=== PATIENT | female | born 1955 | race Caucasian/White ===

== ENCOUNTER 2019-08-31 12:51 | Outpatient (RCR) | payer MEDICARE, MEDICAID, SELFPAY ==
--- NOTE | 2019-08-31 14:57 | PTOPEVAL ---
Thank you for referring Sherrie Giang to [facility]. Please review, sign, date and return this plan of care JAMIE. I agree with and certify that the following plan of care is medically necessary. Referring Physician Date Admitting Provider: Attending Provider: Rahul Small, MD Referring Provider: *PT Outpatient Evaluation Start: 08/31/19 13:48 Freq: Status: Active Protocol: Document 08/31/19 13:58 KAYLEEN (Rec: 08/31/19 14:29 KAYLEEN [id number]) Therapy Assessment Status Assessment Status Assessment Status Evaluation Evaluation Information Problem Diagnosis falls Onset 07/13/19 Subjective Information Pt. reports that she fell at Query Text:As Reported By Patient/ the end of June. she reports Family she fell at the end of June. She reports that she had gotten dizzy and fell on her kitchen floor. She reports she was in [facility]. She states that she did recieve HH therapy. She states that she currently has pain in her hands and her hips . She reports that she is currently using a cane and has not fallen since the last one in June. She reports that her goal is to be able to go outside and feed her birds and walk without a cane. Prior Level of Function Activity Level (Last 3 Months) Occupation retired Hand Dominance Right Activity of Daily Living Ability Needs Some Help Indoor/Home Mobility Independent Community Mobility Needs Some Help Stairs Ability Independent Functional Cognition (Planning, Shopping Needs Some Help , Taking Medications) Cooking Yes Cleaning No Laundry Yes Shopping No Driving No Home Setting Home Type House Environmental Barriers Stairs, Greater than 4 Living Situation With Spouse Support Available Local Family Support Mobility Assistive Devices (Used Last 3 Cane Months) Pain Assessment Pain Scale Pain Scale Used Numeric (1 - 10) Self Report Pain Assessment Bilateral Leg(s) Reported Pain Level 5 Lowest Pain Intensity 5 Pain Score Pain Score
--- NOTE | 2019-09-01 09:03 | OTOPEVAL ---
Thank you for referring Sherrie Giang to [facility]. Please review, sign, date and return this plan of care JAMIE. I agree with and certify that the following plan of care is medically necessary. Referring Physician Date Admitting Provider: Attending Provider: Rahul Small, MD Referring Provider: *OT Outpatient Evaluation Start: 08/31/19 13:04 Freq: Status: Active Protocol: Document 08/31/19 13:04 [facility] (Rec: 08/31/19 14:08 [facility] [id number]) Therapy Assessment Status Assessment Status Assessment Status Evaluation Outpatient Past Medical History Neurological History Hx Cerebrovascular Accident (CVA) Yes Cardiovascular History Hx Congestive Heart Failure Yes Hx Hypertension Yes Hx Myocardial Infarction Yes Genitourinary History Hx Renal Disease Yes Musculoskeletal History Hx Arthritis Yes: thumbs Evaluation Information Problem Diagnosis decreased ROM and decreased strength Onset 07/13/19 Cause falls, fracture of proximal phalanx of R little finger Subjective Information Patient reports that she had 8 Query Text:As Reported By Patient/ falls within 9 days. Patient Family reports stage 3 kidney failure and that her potassium was very low and she was out of it. Patient reports that she fractured her R 5th finger from a fall. Patient reports that they set her finger into place and she was in a cast for 6 weeks however re-broke it during this time. While in the cast, she fell and busted a rib. Patient reports that she spent a week in [place] and has been home for 4-5 weeks. Patient reports that she had back surgery ~5 years ago and since then she has not been able to walk far distances or stand > 15-20 min. Patient reports she is not able to cut her food/use a knife, step up on a curb/step, do dishes, hold utensils and make a fist. Patient also reports some numbness or thingling in the L
--- NOTE | 2019-09-23 10:34 | PCOTNOTE ---
OT Update on Sherrie Giang as of 09/23/19 Subjective: Patient arrives to OT with no new concern. She reports that she is using her R hand for various activities. She continues to have a difficult time straightening it but is able to grasp more efficiently. Overall, patient has been more active and has been driving and walking more without an AD. Objective: 09/23/19 08/31/19 R 5th Finger Measurements: MCP Active Flexion: 65 degrees 35 degrees PIP Active Flexion: 90 degrees 80 degrees DIP Active Flexion: 45 degrees 40 degrees MCP Active Extension: 0 degrees PIP Active Extension: -40 degrees -60 degrees DIP Active Extension: -10 degrees -30 degrees PIP Passive Extension: -5 degrees DIP Passive Extension: 0 degrees R director of physical security strength: 35# 6# Assessment: Yessy has been seen for 9 OT sessions since 08/31/19 with goals of improving overall B UE strength, specifically director of physical security and pinch strength, and R 5th finger ROM/strength. Pain in the R 5th finger continues to be moderate, reporting 10/25 this date. Patient has been issued and reports independence with home programming consisting of: tendon glides, passive ROM for the R 5th finger as well as various AROM and strengthening exercises. Patient demonstrates significant improvement in R director of physical security and pinch strength since initial evaluation as well as increased active and passive PIP extension; although continues to be limited with active extension. A Oval-8 finger splint was issued to patient to utilize 2-3 hours a day to assist with extension. At this time patient has 3 remaining OT sessions. Thanks, Michelle Dueñas, OTR/Charu
== END 2019-10-13 11:35 | disposition home or self-care (01) ==
LOC: CHSOT 12:51
PROVIDERS: Visit Provider Orthopaedic Surgery
DX: S62.646D Nondisplaced fracture of proximal phalanx of right little finger, subsequent encounter for fracture with routine healing (principal); W19.XXXD Unspecified fall, subsequent encounter
CPT/HCPCS: 97035; 97110; 97112; 97140; 97161; 97165; 97530

== ENCOUNTER 2019-09-14 14:05 | Emergency (ER) | payer MEDICARE, MEDICAID, SELFPAY ==
--- NOTE | ~2019-09-14 | XR_ITS ---
EXAMINATION: XR chest 1V portable EXAM DATE: 09/14/2019 15:52 INDICATION: Intermittent left-sided chest pain. TECHNIQUE: Portable AP frontal chest x-ray was obtained. Comparison is made to prior examination from 09/16/2011. FINDINGS: The lungs are clear. There are no pleural effusions. The cardiomediastinal silhouette is within normal limits. There is no pneumothorax suspected. Old left 7th rib fracture posterolaterall y. IMPRESSION: No acute cardiopulmonary findings. Reviewed, dictated and finalized at location B.
[2019-09-14 14:05] VITALS: BP 142/100; PULSE 61; RESP 18; TEMP 36.4; O2SAT 100
[2019-09-14 14:15] VITALS: O2SAT 100
--- NOTE | 2019-09-14 14:17 | ECG_ITS ---
Measurements Intervals [place] Rate: 62 P: 58 CA: 148 QRS: 27 QRSD: 82 T: 70 QT: 393 QTc: 401 Interpretive Statements SINUS RHYTHM POSSIBLE LEFT ATRIAL ENLARGEMENT LOW QRS VOLTAGE IN PRECORDIAL LEADS BASELINE WANDER- I, III, AVL, AVF, V1-V6 BORDERLINE ECG Electronically Signed On 09-14-2019 14:20:02 CDT by Yogesh Stiles D.O.
[2019-09-14 15:09] VITALS: BP 160/60; PULSE 60; RESP 14
[2019-09-14 15:56] LABS: Basophils Absolute Auto 0.04 K/mm3 (0.00-0.10); Basophils Percent Auto 0.5 % (0.0-1.0); Eosinophils Absolute Auto 0.18 K/mm3 (0.02-0.50); Eosinophils Percent Auto 2.2 % (1.0-6.0); Hematocrit 42.3 % (35.0-42.0); Hemoglobin 14.2 g/dL (11.7-13.8); Immature Granulocyte Absolute 0.03 K/mm3 (0.00-0.00); Immature Granulocyte Percent A 0.4 % (0.0-0.0); Lymphocytes Absolute Auto 1.62 K/mm3 (1.10-4.50); Lymphocytes Percent Auto 19.8 % (18.0-42.0); Mean Corpuscular HGB Conc 33.6 g/dL (32.0-36.0); Mean Corpuscular Hemoglobin 33.9 pg (27.0-31.0); Mean Platelet Volume 10.8 fl (9.2-11.8); Monocytes Absolute Auto 0.83 K/mm3 (0.10-0.90); Monocytes Percent Auto 10.1 % (2.0-11.0); Neutrophils Absolute Auto 5.5 K/mm3 (1.7-7.2); Platelet Count Result 235 K/mm3 (150-420); Red Blood Count 4.19 M/mm3 (4.20-5.40); White Blood Count 8.2 K/mm3 (4.8-10.8)
[2019-09-14 16:14] LABS: Alanine Aminotransferase 16 U/L (14-59); Albumin Level 3.2 g/dL (3.4-5.0); Alkaline Phosphatase 91 U/L (46-116); Anion Gap 11.5 mmol/L (7-16); Aspartate Amino Transferase 14 U/L (15-37); Bilirubin,Total 0.3 mg/dL (0.00-1.00); Blood Urea Nitrogen 16 mg/dL (7-18); Carbon Dioxide 26 mmol/L (21-32); Chloride 105 mmol/L (98-108); Estimated CRCL calculation 28 ml/min; Estimated Glomerular Filt Rate 34; Glucose 90 mg/dL (70-99); Lipase 82 U/L (73-393); Osmolality Calculated 287 mOsm/kg (285-295); Potassium 4.5 mmol/L (3.5-5.1); Sodium 138 mmol/L (136-145); Total Protein 6.7 g/dL (6.4-8.2)
[2019-09-14] MEDS: ALBUTEROL SULFATE (*SP) INHALER 4 PUFF INHALATION (16:15)
[2019-09-14 16:22] LABS: D Dimer 0.52 mg/L (0.19-0.50)
[2019-09-14 16:23] LABS: Troponin I < 0.02 ng/mL (0.00-0.056)
[2019-09-14 16:24] LABS: BNP 166 pg/mL (0-100)
[2019-09-14 16:30] VITALS: BP 142/68; PULSE 61; RESP 14
[2019-09-14 16:55] LABS: Add Urine Microscopic? NO; Appearance Urine Clear (Clear); Bilirubin Urine Negative (Negative); Blood Urine Negative (Negative); Color Urine Yellow (Yellow); Glucose Urine UA Negative (Negative); Ketones Urine Negative (Negative); Leukocyte Esterase Ur Negative LEU/UL (Negative); Nitrate Urine Negative (Negative); Protein Urine Negative (Negative); Specific Grav Ur <= 1.005 (1.010-1.020); Urobilinogen Urine 0.2 mg/dL (0.2-1.0); pH Urine 6.5 (5.0-8.0)
--- NOTE | 2019-09-14 18:20 | PC.NURSE ---
Addendum entered by Marylou Marcus RN 09/14/19 18:26: PT. LEFT AMA AT 1745 AND VITALS WERE STABLE AT THAT TIME. PT. AMBULATED OUT OF THE DOOR WITH HER AND HER CANE. Original Note: PT. DECIDED TO LEAVE AMA AND VERBALIZED THAT SHE WAS WAITING TOO LONG TO BE DISCHARGED. WE WERE WAITING FOR HER URINALYSIS RESULTS AND MD WAS WITH A CRITICAL PATIENT AT THAT TIME. GLENYS ALLEN EDUCATED PATIENT THAT SHE WAS AT RISK BY LEAVING BEFORE DISCHARGE INSTRUCTIONS AND ALL RESULTS WERE ASSESSED BY THE MD. SHE WAS INFORMED THAT IT IS HER RIGHT TO REFUSE TREATMENT BUT IF SHE WOULD BE ABLE TO WAIT FOR DISCHARGE IT WOULD BE BENEFICIAL TO HER HEALTH AND DECREASE RISK OF STROKE OR HEART ATTACK. SHE WAS ALSO INSTRUCTED TO FOLLOW UP WITH HER PCP AND MAKE SURE TO GET IN TOUCH WITH EMAIL MANAGER WELL.
--- NOTE | 2019-09-15 01:03 | ED.CHESTPAIN ---
HPI - Chest Pain General Chief Complaint: Chest Pain Stated Complaint: chest pain Source: patient Mode of arrival: ambulatory Limitations: no limitations History of Present Illness HPI narrative: as patient states that she has been having chest pains recently. Ms. Padmaja mike is a 64-year-old female who presents to the ED with complaints of intermittent chest pains. These have really been going on for several months to years but they only occur randomly. yesterday she had several events were trying to drive somewhere. today she was doing well until she started doing the hand bike at physical therapy. then she had several more events that included chest pain. She says she does have some shortness of breath but no nausea no vomiting she does not have abdominal pain she does not have radiation of the pain anywhere else. Patient describes these events as being very sharp very intense but very brief in duration she had several episodes while I was in the room with her this pain seems to grab her last for maybe 5-10 seconds and then dissipated almost just a quick. These events have been occurring for years his chest to that today and yesterday seemed to happen more frequently according to the patient. MD complaint: chest pain Timing of current episode: episodic Prior episodes: Yes Onset: during rest, during exertion and after eating Pain location: substernal Quality: tightness, sharp and shooting Relieving factors: nothing Exacerbating factors: nothing Treatment prior to arrival: none Related Data Home Medications Medication Instructions Recorded Confirmed acetaminophen-codeine 1 tablet PO Q6-12H 09/14/19 09/14/19 albuterol sulfate 1 - 2 puff INHALATION Q4-6H PRN 09/14/19 09/14/19 bupropion HCl 300 mg PO DAILY 09/14/19 09/14/19 carvedilol 12.5 mg PO BID 09/14/19 09/14/19 cetirizine 10 mg PO 09/14/19 conjugated estrogens [Premarin] 0.3 mg PO DAILY 09/14/19 09/14/19 furosemide 40 mg PO DAILY 09/14/19 09/14/19 gabapentin 100 mg PO DAILY 09/14/19 09/14/19 hydrochlorothiazide 25 mg PO DAILY 09/14/19 09/14/19 hydrocodone-acetaminophen 1 tablet PO Q4-6H PRN 09/14/19 09/14/19 hydroxyzine HCl 50 mg PO BID 09/14/19 09/14/19 magnesium oxide 400 mg PO DAILY 09/14/19 09/14/19 meloxicam 15 mg PO DAILY 09/14/19 09/14/19 methocarbamol 500 mg PO DAILY 09/14/19 09/14/19 methocarbamol 750 mg PO DAILY 09/14/19 09/14/19 phentermine 15 mg PO DAILY 09/14/19 09/14/19 potassium chloride [Klor-Con M10] 10 meq PO DAILY 09/14/19 09/14/19 pramipexole 1 mg PO DAILY 09/14/19 09/14/19 spironolactone 50 mg PO DAILY 09/14/19 09/14/19 tizanidine 2 mg PO 09/14/19 zonisamide 50 mg PO DAILY 09/14/19 09/14/19 Allergies Allergy/AdvReac Type Severity Reaction Status Date / Time aspirin Allergy Dyspnea / Verified 09/14/19 15:24 SOB Sulfa (Sulfonamide Allergy Hives Verified 09/14/19 15:24 Antibiotics) sumatriptan Allergy Hives Verified 09/14/19 15:24 SUMATRIPTAN SUCCINATE Allergy Hives Uncoded 09/14/19 15:24 Review of Systems Review of Systems: All systems reviewed & are unremarkable except as noted in HPI and below Constitutional: Constitutional: Denies chills, Reports fatigue, Denies fever(s) and Denies weakness Eyes: Eyes: Denies as per HPI, Denies no additional eye complaints, Denies change in vision and Denies photophobia ENT: Denies system reviewed and no additional complaints, except as documented, Denies as per HPI, Denies dysphagia, Denies vertigo, Denies dizziness, Denies epistaxis, Denies nasal congestion and Denies sore throat Cardiovascular: Cardiovascular: Reports no additional cardiovascular complaints and Reports chest pain Respiratory: Respiratory: Denies as per HPI, Denies no additional respiratory complaints, Denies chest congestion, Denies cough, Denies dyspnea and Denies wheezing Gastrointestinal: Gastrointestinal: Denies as per HPI, Denies no additional gastrointestinal complaints, Denies abdominal pain, Denies bloating, Denies const
== END 2019-09-14 17:45 | disposition left against medical advice (07) ==
LOC: CHSED 14:07
PROVIDERS: Emergency Provider Emergency Medicine
DX: R07.89 Other chest pain (principal); I10 Essential (primary) hypertension; F17.200 Nicotine dependence, unspecified, uncomplicated
CPT/HCPCS: 36415; 71045; 80053; 81003; 83690; 83880; 84484; 85025; 85380; 93005; 99283; 99284; A9270

== ENCOUNTER 2020-02-24 13:04 | Outpatient (RCR) | payer MEDICARE, MEDICAID, SELFPAY ==
--- NOTE | 2020-02-24 13:58 | PTOPEVAL ---
Thank you for referring Sherrie Giang to [facility] The patient is scheduled to be seen for therapy? ____x/week for ___ weeks. Please review, sign, date and return this plan of care JAMIE. I agree with and certify that the following plan of care is medically necessary. Referring Physician Date Admitting Provider: Attending Provider: Nik Small MD Referring Provider: *PT Outpatient Evaluation Start: 02/24/20 13:06 Freq: Status: Active Protocol: Document 02/24/20 13:06 [facility] (Rec: 02/24/20 13:57 [facility] [id number]) Therapy Assessment Status Assessment Status Assessment Status Evaluation Outpatient Past Medical History Neurological History Hx Cerebrovascular Accident (CVA) Yes Cardiovascular History Hx Chest Pain Yes Hx Congestive Heart Failure Yes Hx Hypertension Yes Hx Myocardial Infarction Yes Hx Vascular Surgery Yes: FEMORAL CATH TO STENT RENAL ARTERY Respiratory History Hx Chronic Obstructive Pulmonary Disease Yes (COPD) Hx Pneumonia Yes Gastrointestinal History Hx Appendectomy Yes Hx Bowel Surgery Yes Hx Cholecystectomy Yes Hx Gall Bladder Disease Yes Genitourinary History Hx Renal Disease Yes: STAGE 3 CKD Musculoskeletal History Hx Arthritis Yes: thumbs Hx Other Musculoskeletal Disorders Yes: HAS TO WALK WITH A CANE Hematological History Hx Hematological Disorders No Significant History Endocrine History Hx Endocrine Disorders No Significant History HEENT History Hx HEENT Disorders No Significant History Integumentary History Hx Skin Disorders No Significant History Reproductive History Hx Hysterectomy Yes Psychosocial History Hx Depression Yes Hx Other Psychiatric Disorders Yes: PT. HAD MILD EXPERIENCE OF HALLUCINATIONS IN THE PAST Pain History Has Past Pain Affected Your Daily Life Yes History of Long-Term Prescription Pain Yes Medication Use (Opiates) Effective Methods of Pain Control MEDICATION THAT IS NOT OVER THE COUNTER Anesthesia History Hx Anesthesia Reactions No Significant History Other History Hx MRSA Yes: HX OF MRSA INFECTIONS OF ABDOMEN WITH DEBRIDEMENTS Hx Other Surgeries Yes: SHUNTS TO LIVER, TUBAL LIGATION Evaluation Information Problem Diagnosis L hip bursitis Additional Evaluation Detail LEFS = 58% functionally declined Subjective Information patient reports she has been Query Text:As Reported By Patient/
--- NOTE | 2020-04-06 14:01 | PCPTNOTE ---
04/06/20-pt cancelled apt today, stating she is wearing a heart monitor, and does not wish to come to therapy with it. -HM
--- NOTE | 2020-06-20 07:35 | PCPTNOTE ---
06/20/20 - patient has not been to therapy in over 2 months. as of this date, she will be dc'd from skilled PT services and all progress towards goals will be taken from her most recent evaluation/note. TWILA
== END 2020-03-30 23:59 | disposition home or self-care (01) ==
LOC: CHSPT 13:04
PROVIDERS: Visit Provider Internal Medicine Infectious Disease
DX: M71.552 Other bursitis, not elsewhere classified, left hip (principal)
CPT/HCPCS: 97014; 97110; 97140; 97162; G0283

== ENCOUNTER 2020-12-16 10:26 | Outpatient (CLI) | payer OTHER, SELFPAY ==
[2020-12-16 10:48] LABS: Basophils Absolute Auto 0.06 K/mm3 (0.00-0.10); Basophils Percent Auto 0.7 % (0.0-1.0); Eosinophils Absolute Auto 0.14 K/mm3 (0.02-0.50); Eosinophils Percent Auto 1.7 % (1.0-6.0); Hematocrit 43.7 % (35.0-42.0); Immature Granulocyte Absolute 0.04 K/mm3 (0.00-0.00); Immature Granulocyte Percent A 0.5 % (0.0-0.0); Lymphocytes Absolute Auto 2.19 K/mm3 (1.10-4.50); Lymphocytes Percent Auto 26.5 % (18.0-42.0); Mean Corpuscular Hemoglobin 31.9 pg (27.0-31.0); Mean Corpuscular Volume 99.5 fL (78.0-102.0); Mean Platelet Volume 10.5 fl (9.2-11.8); Monocytes Absolute Auto 0.73 K/mm3 (0.10-0.90); Monocytes Percent Auto 8.8 % (2.0-11.0); Neutrophils Absolute Auto 5.1 K/mm3 (1.7-7.2); Neutrophils Percent Auto 61.8 % (50.0-70.0); Platelet Count Result 236 K/mm3 (150-420); Red Blood Count 4.39 M/mm3 (4.20-5.40); White Blood Count 8.3 K/mm3 (4.8-10.8)
[2020-12-16 10:55] LABS: Creatinine Urine 43.08 mg/dL (40-278); Total Protein Urine Random 14.9 mg/dL (0.0-11.9); Ur Ttl Prot Creatinine Ratio 0.35 mg/mg (0-0.20)
[2020-12-16 11:21] LABS: Albumin Level 3.8 g/dL (3.4-5.0); Anion Gap 10 mmol/L (8-16); Blood Urea Nitrogen 25 mg/dL (7-18); Calcium 9.3 mg/dL (8.5-10.1); Carbon Dioxide 24 mmol/L (21-32); Chloride 104 mmol/L (98-108); Estimated Glomerular Filt Rate 35; Glucose 87 mg/dL (70-99); Osmolality Calculated 289 mOsm/kg (285-295); Phosphorus 4.3 mg/dL (2.6-4.7); Potassium 5.5 mmol/L (3.5-5.1); Sodium 138 mmol/L (136-145)
[2020-12-20 11:25] LABS: Parathyroid Intact 33 pg/mL (14-64)
== END 2020-12-16 10:27 | disposition home or self-care (01) ==
LOC: CHSLAB 10:33
PROVIDERS: Visit Provider Internal Medicine Nephrology
DX: N18.32 Chronic kidney disease, stage 3b (principal)
CPT/HCPCS: 36415; 80069; 82570; 83970; 84156; 85025

== ENCOUNTER 2021-02-18 18:22 | Inpatient (IN) | payer OTHER, SELFPAY ==
--- NOTE | ~2021-02-18 | US_ITS ---
EXAMINATION: US renal BI DATE: 02/19/2021 17:38 INDICATION: Acute kidney injury. TECHNIQUE: Multiple ultrasound grayscale images of the kidneys were obtained. COMPARISON: CT abdomen and pelvis 02/18/2021 FINDINGS: The right kidney measures 4.6 x 3.7 x 2.7 cm. The left kidney measures 9.6 x 5.6 x 5.1 cm. The right kidney demonstrates increased parenchymal echogenicity, consistent with neuropathy. There is no hydro nephrosis. The bladder is normal. IMPRESSION: 1. Severe atrophy of right kidney. No hydronephrosis. Reviewed, dictated and finalized at location A. ST LANDSCAPE ECOLOGY PROFESSOR
--- NOTE | ~2021-02-18 | XR_ITS ---
EXAMINATION: XR chest 2V DATE: 02/18/2021 21:53 INDICATION: Dyspnea and weakness. TECHNIQUE: PA and lateral views of the chest were obtained. COMPARISON: Chest radiograph dated 09/14/2019 FINDINGS: The lungs are clear with no focal airspace opacities, pulmonary edema, pleural effusion or pneumothor ax. The cardiomediastinal silhouette is normal. Old bilateral seventh rib fractures. IMPRESSION: 1. No acute cardiopulmonary disease. Reviewed, dictated and finalized at location A. IMEDIA AUTHORING SPECIALIST
--- NOTE | ~2021-02-18 | CT_ITS ---
EXAMINATION: CT abdomen pelvis wo con DATE: 02/18/2021 22:00 INDICATION: Left lower quadrant abdominal pain TECHNIQUE: Computed tomography (CT) of the abdomen and pelvis was performed without intravenous contr ast. Automated exposure control and iterative reconstruction technique were employed. The dose-length product was 969.39 mGy-cm. COMPARISON: None FINDINGS: Mild irregular septal line thickening at the periphery of the bilateral lower lungs which could repre sent atelectasis, minimal pulmonary edema or more chronic interstitial lung disease. Heart size is no rmal. Dense mitral annular calcific location. No pericardial or pleural effusion. Gallbladder is not visualized and likely surgically absent. Liver, pancreas, spleen, bilateral adrenal glands and left k idney are normal. Severe right renal atrophy with 1-2 mm stone at the upper pole. There is a 2-3 mm s tone in the proximal right ureter both no hydronephrosis likely due to the severe right renal atrophy . No left-sided urolithiasis or hydronephrosis. Layering fluid in the proximal colon consistent with diarrhea. There are few diverticula along the sigmoid colon without adjacent inflammatory stranding t o suggest diverticulitis. Small bowel is normal. The appendix is not visualized. No pericecal inflamm atory change to suggest acute appendicitis. Bladder is normal. The uterus is not identified and has l ikely been surgically resected. No free intraperitoneal gas or fluid. No pathologically enlarged abdo joanne or pelvic lymphadenopathy. Postoperative changes in the lower lumbar spine including L5 laminec juan, L4-S1 posterior spinal fusion and anterior fusion with ny extending from L4 to S1 across the L 5 vertebral body. IMPRESSION: 1. Right nephrolithiasis including 2-3 mm stone in the proximal right ureter but no right hydronephro sis likely due to severe atrophy of the right kidney. 2. Mild sigmoid diverticulosis. 3. Mild reticulation along the periphery of the lower lungs with differential including atelectasis, mild pulmonary edema or more chronic interstitial lung disease. Reviewed, dictated and finalized at location A. PROJECT MANAGER IMPRESSION: 1. Right nephrolithiasis including 2-3 mm stone in the proximal right ureter bu t no right hydronephrosis likely due to severe atrophy of the right kidney. 2. Mild sigmoid diverticulosis. 3. Mild reticulation along the periphery of the lower lungs with differential i ncluding atelectasis, mild pulmonary edema or more chronic interstitial lung di sease.
[2021-02-18 18:27] VITALS: BP 140/68; PULSE 71; RESP 18; TEMP 36.3; O2SAT 99
--- NOTE | 2021-02-18 21:04 | ECG_ITS ---
Measurements Intervals [place] Rate: 65 P: 32 NC: 173 QRS: -20 QRSD: 106 T: 59 QT: 457 QTc: 475 Interpretive Statements SINUS RHYTHM NORMAL ECG Electronically Signed On 02-19-2021 7:03:26 WOOD MACHINE CARVER by Yogesh Stiles D.O.
--- NOTE | 2021-02-18 21:08 | ED.WEAKNESS ---
HPI - Weakness General Chief complaint: Weakness Stated complaint: kidney Time Seen by Provider: 02/18/21 20:53 Source: patient History of Present Illness HPI Narrative: Patient reports generalized weakness over the past 2 weeks getting progressively worse today she had a syncopal event. She got up from trying to use the restroom when she felt lightheaded dizzy and collapsed. Struck her head she denies loss of consciousness she denies any headache. For she is also had nausea and decreased p.o. intake over this time. Also reports she has not urinated over the past few days which is atypical for her. Denies fevers, cough she does report mild increase from her baseline shortness of breath Related Data Home Medications Medication Instructions Recorded Confirmed albuterol mcg INHALATION 02/18/21 bumetanide 1 mg PO DAILY 02/18/21 carvedilol 12.5 mg PO BID 02/18/21 cetirizine [All Day Allergy 10 mg PO DAILY 02/18/21 (cetirizine)] conjugated estrogens [Premarin] 0.3 mg PO DAILY 02/18/21 doxepin mg 02/18/21 isosorbide mononitrate 30 mg PO DAILY 02/18/21 omeprazole 40 mg PO DAILY 02/18/21 pramipexole 1.5 mg PO HS 02/18/21 spironolactone 50 mg PO DAILY 02/18/21 tizanidine 4 mg PO HS PRN 02/18/21 zonisamide 100 mg PO BID 02/18/21 Allergies Allergy/AdvReac Type Severity Reaction Status Date / Time aspirin Allergy Ulcers Verified 02/18/21 18:29 Review of Systems Review of Systems: CONSTITUTIONAL: Denies fever, chills, or sweats. EYES: Denies visual changes, redness, or discharge. ENT: Denies rhinorrhea, congestion, sore throat, or otalgia. CARDIOVASCULAR: Denies chest pain, palpitations, or edema. RESPIRATORY: Denies cough GASTROINTESTINAL: Denies abdominal pain, nausea, vomiting, or diarrhea. GENITOURINARY: Denies dysuria or hematuria. SKIN: Denies rash or itching. MUSCULOSKELETAL: Denies back pain, joint pain, or myalgia. NEUROLOGIC: Denies headache, numbness, dizziness, or focal weakness. PSYCHIATRIC: Denies anxiety or depression. All systems reviewed & are unremarkable except as noted in HPI and below PMFSH Past Medical History Medical History (Updated 02/19/21 @ 00:48 by Freeman Caballero MD) Chronic kidney disease Heart failure Social History Social History (Updated 02/18/21 @ 21:09 by Freeman Caballero MD) Smoking status: Current every day smoker Exam Narrative: GENERAL: Well-appearing, well-nourished, and in no acute distress. HEAD: Normocephalic, atraumatic. EYES: PERRLA and EOMI. ENT: Nares clear, no rhinorrhea or epistaxis. Mucous membranes moist. NECK: Supple. No masses. No JVD CHEST: Clear to auscultation. No respiratory distress. No wheezes rales or rhonchi HEART: Regular rate and rhythm. No murmur heard. Normal peripheral pulses. ABDOMEN: Moderate diffuse tenderness most noted in the left lower quadrant, nondistended, normal active bowel sounds. EXTREMITIES: Normal range of motion. No edema. SKIN: Warm, dry, no rash. NEURO: No focal deficits. Alert and oriented x3. PSYCH: Normal mood and affect. Course Reevaluation(s) Reevaluation #1: Patient presents with weakness case With hospitalist patient will be admitted for her electrolyte abnormalities and reassessment. Date: 02/19/21 Time: 00:06 Vital Signs Vital signs: Vital Signs Temperature 36.3 C L 02/18/21 18:27 Pulse Rate 71 02/18/21 18:27 Respiratory Rate 18 02/18/21 18:27 Blood Pressure 140/68 02/18/21 18:27 Pulse Oximetry 99 02/18/21 18:27 Temperature 36.3 C L 02/18/21 18:27 Pulse Rate 55 L 02/19/21 04:17 Respiratory Rate 17 02/19/21 04:17 Blood Pressure 103/58 L 02/19/21 04:17 Pulse Oximetry 97 02/19/21 04:17 MDM - Weakness MDM Narrative Medical decision making narrative: Patient with progressive weakness over the past 2 weeks. Overall patient looks clinically well exam had nonfocal neurological exam on exam had left lower quadrant abdominal pain. Labs and imaging obtained. Tammy
[2021-02-18 21:26] LABS: Basophils Absolute Auto 0.1 K/mm3 (0.0-0.1); Basophils Percent Auto 0.5 % (0.2-1.2); Eosinophils Absolute Auto 0.1 K/mm3 (0-0.3); Eosinophils Percent Auto 1.3 % (0-4.4); Hematocrit 44.5 % (37.0-47.0); Immature Granulocyte Absolute 0.06 K/mm3 (0.00-0.031); Immature Granulocyte Percent A 0.5 % (0-0.5); Lymphocytes Absolute Auto 2.82 K/mm3 (0.9-3.2); Lymphocytes Percent Auto 25.5 % (18.3-44.2); Mean Corpuscular Hemoglobin 32.4 pg (26-34); Mean Corpuscular Volume 90.1 fl (80-100); Mean Platelet Volume 10.9 fl (7.4-10.4); Monocytes Absolute Auto 1.4 K/mm3 (0.1-0.6); Neutrophils Absolute Auto 6.5 K/mm3 (1.3-6.7); Neutrophils Percent Auto 59.2 % (45.5-73.1); Platelet Count Result 280 k/mm3 (150-375); Red Blood Count 4.94 M/mm3 (4.2-5.4)
[2021-02-18 22:29] LABS: Add Urine Microscopic? YES; Appearance Urine Cloudy (Clear); Bacteria Urine 1+ /hpf; Bilirubin Urine Negative (Negative); Blood Urine Negative (Negative); Color Urine Amber (Yellow); Glucose Urine UA Negative (Negative); Ketones Urine Trace mg/dL (Negative); Leukocyte Esterase Ur Negative LEU/UL (Negative); Mucus Urine Rare /lpf; Nitrate Urine Negative (Negative); Protein Urine Negative (Negative); RBC Urine 0-2 /hpf (0-2); Specific Grav Ur 1.013 (1.001-1.035); Squamous Epithelial Cell Urine Many /hpf (Few); Urobilinogen Urine Negative mg/dL (<2.0); WBC Urine 0-3 /hpf
[2021-02-18 22:59] LABS: Alanine Aminotransferase 24 U/L (4-35); Albumin Level 4.9 g/dL (3.5-5.1); Alkaline Phosphatase 73 U/L (38-126); Anion Gap 15 mmol/L (8-16); Aspartate Amino Transferase 35 U/L (14-36); Bilirubin,Total 0.6 mg/dL (0.2-1.3); Blood Urea Nitrogen 66 mg/dL (7-17); Calcium 10.1 mg/dL (8.4-10.2); Carbon Dioxide 30 mmol/L (22-30); Chloride 82 mmol/L (98-107); Estimated CRCL calculation 18 ml/min; Estimated Glomerular Filt Rate 16; Glucose 119 mg/dL (65-110); Lipase 166 U/L (23-300); Magnesium 2.6 mg/dL (1.6-2.3); Phosphorus 4.7 mg/dL (2.5-4.5); Potassium 2.2 mmol/L (3.4-5.0); Sodium 127 mmol/L (137-145)
[2021-02-18] MEDS: SODIUM CHLORIDE 0.9% IV 1,000 ML 999 ML IV CONT (23:43)
[2021-02-18 23:44] VITALS: BP 144/99; PULSE 58; RESP 18; O2SAT 98
[2021-02-19] VITALS (10 sets, daily range): BP systolic 82–116; BP diastolic 47–78; PULSE 53–70; RESP 16–20; TEMP 36.2–36.7; O2SAT 92–99; BMI 36.4
[2021-02-19] MEDS: KCL 20 MEQ/D5/0.45% SOD CHL 1,000 ML 125 ML IV CONT (00:04)
[2021-02-19] MEDS: ONDANSETRON INJ 4 MG/2 ML VIAL IV PUSH ×2 (00:16→20:59)
[2021-02-19] MEDS: POTASSIUM CHLORIDE 20 MEQ PACKET (FOR LIQUID) 40 MEQ PO ×2 (01:17→10:42)
[2021-02-19] MEDS: SODIUM CHLORIDE 0.9% IV 1,000 ML 999 ML IV CONT (01:19)
--- NOTE | 2021-02-19 05:25 | ADMGEN ---
This patient, Sherrie Giang, was admitted to [facility] Surg Room 317-02. Patient/family oriented to hospital policies and general routines including ID bracelet, bed and alarms, visiting hours, pain management, procedures, bathroom and other care routines, personal items, smoking policy, room service/diet, and visiting hours. Information on how to activate the Rapid Response Team has been discussed. Patient/Family are encouraged to report perceived risks to care and to ask questions if they do not understand what they are told or what they should do.
--- NOTE | 2021-02-19 06:17 | PM.IMHP ---
H&P: HPI History of Present Illness Date/Time: 02/19/21 06:17 Chief Complaint: Weakness, decreased appetite and diarrhea Narrative: 65-year-old female with a past medical history of stage 3 chronic kidney disease, hypertension, CHF and chronic back pain who presented to the ER for evaluation of weakness. She reports that she follows with Dr. Kuldeep Gates regarding her kidney disease and that her GFR is usually around 30. The patient reports that she has been having 2 weeks of progressive weakness that worsened on the day of presentation. She states that for the last 2 weeks he has had decreased appetite and just feels as if he cannot eat. She will eat a few bites of food and be done. She denies sensation of early satiety. She states that she cannot give any more details she just ?can not eat?. She does have occasional nausea. She has not been having any vomiting. She has also had about a week of diarrhea. She reports that her stools have been watery and brown in color. She is having 3-4 loose stools a day. She has denies any recent travel or antibiotic therapy. She has had decreased urine output and has not urinated much over the last few days. But she told the ER staff that she had not urinated all in several days. However, since she has arrived to the medical floor she is already urinated a couple of times. One of those time she did have urine mixed with stool. She reports that she has been having intermittent left periumbilical abdominal pain for the last several days to week. Pain is worse with palpation. However, she does report that she has some issues with perception of pain due to her multiple abdominal surgery for prior MRSA infection of her abdominal wall. She denies any abdominal distension. She reports moderate to severe pain in her lumbar area of her back where she had prior lumbar surgery. She states that she usually takes Tylenol 3 at home for this. However I can find no evidence of prior Tylenol 3 prescriptions in the prescription drug monitoring program. She is able to move all extremities equally. She reports that the back pain is worse because she is laying in the hospital bed. She does have chronic shortness of breath at baseline. She has an occasional dry cough that is unchanged from baseline. She denies having fevers or chills. She has been feeling extremely lightheaded with standing. She decided to come to the ER after she had a fall when trying to get up to use the restroom. She reported that she felt lightheaded and dizzy and collapsed. She stated that she struck her head when she fell. Review of Systems Review of Systems: 12 systems were reviewed with pertinent positives and negatives per HPI. Except as documented in the HPI, all other systems were reviewed and are negative. [facility] Past Medical History Medical History (Updated 02/19/21 @ 08:28 by Ramona Dutta DO) Allergic rhinitis Chronic kidney disease Chronic lower back pain Depression GERD (gastroesophageal reflux disease) Heart failure Restless leg syndrome Surgical History Surgical History (Updated 02/19/21 @ 08:24 by Ramona Dutta DO) History of hysterectomy History of ventral hernia repair X5 complicated by MRSA infection requiring debridement Status post cataract extraction of both eyes with insertion of intraocular lens Family History Family History (Updated 02/19/21 @ 08:25 by Ramona Dutta DO) Mother Lung cancer Father Healthy adult Alive and well at age greater than 90 Social History Social History (Updated 02/19/21 @ 08:25 by Ramona Dutta DO) Smoking packs per day: 0.5 Smoking cigarettes per day: 10.0 Years smoked: 50 Smoking pack-years: 25.00 Smoking status: Light tobacco smoker Alcohol intake: former Substance use: never Spiritual care concerns: No Meds Home Medications and Allergies Home Medications Medication Instructions Recorded Confirmed Type albuterol 90 mc
[2021-02-19 07:30] LABS: Magnesium 2.5 mg/dL (1.6-2.3)
[2021-02-19 09:19] LABS: Anion Gap 14 mmol/L (8-16); Blood Urea Nitrogen 59 mg/dL (7-17); Calcium 8.9 mg/dL (8.4-10.2); Carbon Dioxide 23 mmol/L (22-30); Chloride 96 mmol/L (98-107); Estimated CRCL calculation 26 ml/min; Estimated Glomerular Filt Rate 22; Glucose 107 mg/dL (65-110); Potassium 2.5 mmol/L (3.4-5.0); Sodium 133 mmol/L (137-145)
[2021-02-19] MEDS: TIZANIDINE HCL 4 MG TABLET 8 MG PO ×2 (10:42→20:57)
[2021-02-19] MEDS: PANTOPRAZOLE 40 MG TABLET PO ×2 (10:43→18:06)
[2021-02-19] MEDS: GABAPENTIN 100 MG CAPSULE PO ×2 (10:43→18:07)
[2021-02-19] MEDS: ISOSORBIDE MONONITRATE 30 MG TAB.ER.24H PO (10:43)
[2021-02-19] MEDS: ZONISAMIDE 100 MG CAPSULE PO ×3 (10:43→18:06)
[2021-02-19] MEDS: KCL 20 MEQ/SW 100 ML 100 ML 50 MEQ IVPB (10:43)
[2021-02-19 10:54] LABS: Anion Gap 10 mmol/L (8-16); Blood Urea Nitrogen 54 mg/dL (7-17); Calcium 8.6 mg/dL (8.4-10.2); Carbon Dioxide 23 mmol/L (22-30); Chloride 97 mmol/L (98-107); Estimated CRCL calculation 29 ml/min; Estimated Glomerular Filt Rate 26; Glucose 123 mg/dL (65-110); Potassium 2.7 mmol/L (3.4-5.0); Sodium 130 mmol/L (137-145)
--- NOTE | 2021-02-19 12:06 | PM.CNNEP ---
Assessment and Plan Assessment and plan (1) KHALIF (acute kidney injury): Code(s): N17.9 - Acute kidney failure, unspecified Status: Acute Assessment and Plan: likely due to a combination of volume depletion from poor oral intake worsened by diarrhea and continued use of outpatient diuretic therapy check renal ultrasound check urine electroltyes gentle IVF hydration hold diuretics (2) Stage 3b chronic kidney disease: Code(s): N18.32 - Chronic kidney disease, stage 3b Status: Chronic Assessment and Plan: baseline creatinine ~ 1.5 - 1.6mg/dl in the last year or so secondary to HTN, vascular disease, and smoking (3) Hypokalemia: Code(s): E87.6 - Hypokalemia Status: Acute Assessment and Plan: due poor oral intake and ongoing diuretic use replete as needed follow trend (4) Hyponatremia: Code(s): E87.1 - Hypo-osmolality and hyponatremia Status: Acute Assessment and Plan: suspect hypovolemic hyponatremia should correct with IVFs follow trend for now Will continue to follow. History of Present Illness Reason for Consult Consult date: 02/19/21 Reason for consult: acute renal failure, hyponatremia and hypokalemia Chief Complaint Chief complaint: Hypokalemia History of Present Illness Narrative: IT SHOULD BE NOTED THAT THE PATENT HAS ANOTHER CHART IN [facility] (under the name Sherrie Gaing ). The patient is a 65-year-old female with a past medical history as outlined below who presented to the [facility] ER for complaints of generalized weakness. She states that over the last two weeks she has felt that her weakness has progressively gotten worse and due to this ongoing issue/problem, she thought it prudent to present to the emergency room for further evaluation. In association with a generalized weakness, she reports poor oral intake and decreased appetite in the same time frame but is unable to elaborate on why she is unable to eat. She reports occasional nausea and did report about a week of diarrhea prior to the symptoms. She also reports a decrease in urine output over the last few days but assumed was just due to the fact that she had at but eating and drinking very well. Furthermore, she reports dizziness and lightheadedness and even a fall when trying to go to the restroom as well. Workup and evaluation emergency room demonstrated the patient to be hemodynamically stable but routine blood test demonstrated marked decline in her kidney function with elevated BUN and creatinine far above baseline. Furthermore, she had multiple electrolyte abnormalities including hyponatremia, as well as hypokalemia. She underwent a CT scan of the abdomen pelvis did not show any acute abdominal pathology although there was noting of nephrolithiasis in her right kidney without right hydronephrosis although the right kidney was somewhat atrophic. Her CBC was remarkable for a mildly elevated white blood cell count an elevated hemoglobin/hematocrit. Given her constellation of symptoms on presentation and these laboratory abnormalities, she was admitted the hospital for further evaluation therapy. Renal consultation was requested due to her acute kidney injury on top of her known chronic kidney disease. The patient normally follows with Dr. Kuldeep Gates for her chronic kidney disease which is thought to be secondary to a combination of her hypertension, vascular disease, and smoking history. Her normal baseline creatinine normally runs around 1.5-1.6 mg/dL. I believe she is due to see Dr. Gates in the office in the next few days for ongoing management of her chronic kidney disease. Currently, she feels a bit better and appears to be eating her lunch at the time of my visit. Review of Systems Review of Systems: As per HPI. [facility] Past Medical History Medical History (Updated 02/19/21 @ 17:15 by Kaycee Craven MD) Allerg
--- NOTE | 2021-02-19 12:56 | PM.IMPN ---
Progress Note: A&P Assessment and Plan (1) Acute hypokalemia: Code(s): E87.6 - Hypokalemia Status: Acute Assessment and Plan: Severe hypokalemia likely secondary to GI losses. Supplemented aggressively with p.o. and IV potassium while closely monitoring potassium in the setting of acute kidney injury. Currently patient is making urine which is very reassuring. (2) Hypovolemia: Code(s): E86.1 - Hypovolemia Status: Acute Assessment and Plan: Current likely secondary to GI losses. Continue IV resuscitation. (3) Acute kidney injury superimposed on chronic kidney disease: Code(s): N17.9 - Acute kidney failure, unspecified; N18.9 - Chronic kidney disease, unspecified Status: Acute Assessment and Plan: Acute nonoliguric kidney injury in the setting of previously diagnosed chronic kidney disease. Patient creatinine has improved from 2.2-1.9. (4) Diarrhea: Qualifiers: Diarrhea type: unspecified type Qualified Code(s): R19.7 - Diarrhea, unspecified Code(s): R19.7 - Diarrhea, unspecified Status: Acute (5) Hyponatremia: Code(s): E87.1 - Hypo-osmolality and hyponatremia Status: Acute Assessment and Plan: Likely secondary to appropriate ADH release in the setting of hypovolemia secondary to diarrhea. Check urine electrolytes. Continue IV fluid resuscitation while closely monitoring output, serial chemistries, and respiratory status. (6) Heart failure: Code(s): I50.9 - Heart failure, unspecified Status: Acute Assessment and Plan: Currently her asymptomatic and hypovolemic. Due to GI losses, the patient hydrochlorothiazide, bumetanide, coreg and spironolactone have been appropriately put on hold. Continue cautious IV fluid hydration. Additional Plan Patient is hypokalemia and hypovolemia likely related to diarrheal illness and decreased oral potassium intake in conjunction with continued diuretic use. The patient's hydrochlorothiazide, Bumex and spironolactone are on hold. Will continue IV fluid hydration. The patient's blood pressures this morning or borderline low so will also hold the patient's home Coreg. Will continue IV fluid hydration. Will check stool for C diff, stool cultures and stool wbc's. Other causes of diarrhea could also be possible including possible withdrawal from start medications. The patient told me that she usually uses Tylenol 3 for her back pain. However I have not seen where the patient had Tylenol 3 filled in the prescription drug monitoring program. Is unclear to me at this time patient is actually getting prescription for Tylenol 3 or if she had this prescription in the distant past or if she has getting the prescription from a not prescribe source. I will resume the patient's home Neurontin and tizanidine. Will check urine drug screen. The patient received 40 of IV potassium in 20 of p.o. potassium in the ER. Repeat BMP has been ordered and is pending. Nephrology has been consulted. Subjective Date/time seen: 65-year-old female with a past medical history of stage 3 chronic kidney disease, hypertension, CHF and chronic back pain who presented to the ER for evaluation of weakness. She reports that her stools have been watery and brown in color. She is having 3-4 loose stools a day. She does have chronic shortness of breath at baseline. She carries a diagnosis of CKD and is followed by Dr. Gates as an outpatient. 02/19/21 12:56 S: Patient is examined at the bedside. She is nauseous. No tremor. Exam Narrative: PHYSICAL EXAM: WEIGHT 96.3 kg BMI 36.4 General: Obese, no acute distress HEENT: Mucous membranes are dry, no oral pharyngeal erythema, pupils are equal and reactive Respiratory: Clear to auscultation bilaterally, no increased work of breathing Cardiovascular: Regular rate, regular rhythm, 2+ bilateral radial pedal pulses Gastrointestinal: Hyperactive bowel sounds, nondi
[2021-02-19] MEDS: POTASSIUM CHLORIDE 20 MEQ TABLET 40 MEQ PO (14:28)
[2021-02-19] MEDS: KCL 40 MEQ/0.9% SOD CHL 1,000 ML 125 ML IV CONT (14:28)
[2021-02-19 14:47] LABS: Anion Gap 11 mmol/L (8-16); Blood Urea Nitrogen 51 mg/dL (7-17); Calcium 8.9 mg/dL (8.4-10.2); Carbon Dioxide 23 mmol/L (22-30); Chloride 97 mmol/L (98-107); Estimated CRCL calculation 29 ml/min; Estimated Glomerular Filt Rate 26; Glucose 133 mg/dL (65-110); Potassium 3.2 mmol/L (3.4-5.0); Sodium 131 mmol/L (137-145)
[2021-02-19 17:10] LABS: Sodium 131 mmol/L (137-145)
[2021-02-19] MEDS: HYDROcodone/acetaminophen (*CRX) 5-325 MG TABLET 1 TAB PO (18:06)
[2021-02-19] MEDS: PRAMIPEXOLE 1 MG TABLET PO (20:56)
[2021-02-19] MEDS: PRAMIPEXOLE 0.5 MG TABLET PO (20:56)
[2021-02-19] MEDS: DOXEPIN HCL 25 MG CAPSULE 100 MG PO (20:57)
--- NOTE | 2021-02-19 22:57 | PC.NURSE ---
Per patient: DO NOT GIVE ANY INFORMATION TO Riki Giang ([id number]) He is her ex- who has been repeatedly calling her as well as the nurses station and she is not comfortable with him having information. Put notes at phones to remind unit secretaries etc.
[2021-02-20] VITALS (9 sets, daily range): BP systolic 106–113; BP diastolic 58–64; PULSE 63–82; RESP 14–20; TEMP 36.3–37.2; O2SAT 97–98
[2021-02-20 03:57] LABS: Amphetamine Screen Urine Negative (Negative); Barbiturate Screen Urine Negative (Negative); Benzodiazepines Screen Urine Negative (Negative); Cannabinoid Screen Urine Negative (Negative); Cocaine Screen Urine Negative (Negative); Methadone Screen Urine Negative (Negative); Opiate Screen Urine Positive (Negative); Phencyclidine Screen Urine Negative (Negative)
[2021-02-20 04:03] LABS: Creatinine Urine 132.1 mg/dL; Urea Random Urine 878 MG/DL
[2021-02-20 04:07] LABS: Sodium Urine Random 18 meq/L
[2021-02-20] MEDS: HYDROcodone/acetaminophen (*CRX) 5-325 MG TABLET 1 TAB PO ×3 (07:54→21:43)
[2021-02-20] MEDS: ONDANSETRON INJ 4 MG/2 ML VIAL IV PUSH ×2 (07:54→14:17)
[2021-02-20 07:56] LABS: Glucose Point of Care 90 mg/dl (65-105)
[2021-02-20 08:44] LABS: Basophils Percent Auto 0.6 % (0.2-1.2); Eosinophils Absolute Auto 0.1 K/mm3 (0-0.3); Eosinophils Percent Auto 1.7 % (0-4.4); Hematocrit 39.1 % (37.0-47.0); Hemoglobin 13.3 g/dL (12.0-15.0); Immature Granulocyte Absolute 0.03 K/mm3 (0.00-0.031); Immature Granulocyte Percent A 0.5 % (0-0.5); Lymphocytes Absolute Auto 1.76 K/mm3 (0.9-3.2); Lymphocytes Percent Auto 27.8 % (18.3-44.2); Mean Corpuscular Hemoglobin 31.5 pg (26-34); Mean Corpuscular Volume 92.7 fl (80-100); Mean Platelet Volume 10.8 fl (7.4-10.4); Monocytes Absolute Auto 0.9 K/mm3 (0.1-0.6); Monocytes Percent Auto 14.1 % (2.6-8.5); Neutrophils Absolute Auto 3.5 K/mm3 (1.3-6.7); Neutrophils Percent Auto 55.3 % (45.5-73.1); Platelet Count Result 221 k/mm3 (150-375); Red Blood Count 4.22 M/mm3 (4.2-5.4); Red Cell Distribution Width 13.5 % (11.5-14.5); White Blood Count 6.3 K/mm3 (4.5-10.0)
[2021-02-20 09:12] LABS: Albumin Level 3.6 g/dL (3.5-5.1); Anion Gap 6 mmol/L (8-16); Blood Urea Nitrogen 34 mg/dL (7-17); Calcium 9.1 mg/dL (8.4-10.2); Carbon Dioxide 23 mmol/L (22-30); Chloride 102 mmol/L (98-107); Estimated CRCL calculation 33 ml/min; Estimated Glomerular Filt Rate 30; Glucose 95 mg/dL (65-110); Phosphorus 2.3 mg/dL (2.5-4.5); Potassium 3.1 mmol/L (3.4-5.0); Sodium 131 mmol/L (137-145)
--- NOTE | 2021-02-20 10:20 | PM.PNNEP ---
Progress Note: A&P Assessment and Plan (1) KHALIF (acute kidney injury): Code(s): N17.9 - Acute kidney failure, unspecified Status: Acute Assessment and Plan: A KI on top of CKD UA negative. Urine electrolytes are pre renal renal sonogram shows nothing acute. There is severe atrophy of the right kidney. likely due to a combination of volume depletion from poor oral intake worsened by diarrhea and continued use of outpatient diuretic therapy Diuretics on hold. Getting some IV fluids. (2) Stage 3b chronic kidney disease: Code(s): N18.32 - Chronic kidney disease, stage 3b Status: Chronic Assessment and Plan: baseline creatinine ~ 1.5 - 1.6mg/dl in the last year or so secondary to HTN, vascular disease, and smoking (3) Hypokalemia: Code(s): E87.6 - Hypokalemia Status: Acute Assessment and Plan: due poor oral intake and ongoing diuretic use replete as needed follow trend (4) Hyponatremia: Code(s): E87.1 - Hypo-osmolality and hyponatremia Status: Acute Assessment and Plan: suspect hypovolemic hyponatremia should correct with IVFs follow trend for now Will continue to follow. Subjective Date/time seen: 02/20/21 10:20 Interval history: patient is alert. She feels better. She still has diarrhea. Review of Systems Cardiovascular: Cardiovascular: Reports no additional cardiovascular complaints Respiratory: Respiratory: Reports no additional respiratory complaints Gastrointestinal: Gastrointestinal: Reports no additional gastrointestinal complaints Genitourinary: Genitourinary: Reports no additional female genitourinary complaints Exam Narrative: WDWN in NAD skin no rash head ncat lungs clear cor reg no rub abd BS+ nontender and soft ext no edema. Objective Data Vital Signs Vital Signs: Vital Signs - 24 hr 02/19/21 12:00 02/19/21 14:00 02/19/21 16:00 Temperature 36.2 C L Pulse Rate 70 65 67 Respiratory Rate 20 Blood Pressure 116/53 L Pulse Oximetry 92 02/19/21 20:00 02/19/21 22:00 02/19/21 22:56 Temperature 36.7 C Pulse Rate 69 66 Respiratory Rate 18 Blood Pressure 82/47 L 98/78 L Pulse Oximetry 96 02/20/21 00:00 02/20/21 04:00 02/20/21 06:00 Temperature 36.3 C L Pulse Rate 69 63 66 Respiratory Rate 18 Blood Pressure 106/64 Pulse Oximetry 98 Intake/Output Intake/Output: Intake & Output 02/17/21 02/18/21 02/19/21 02/20/21 23:59 23:59 23:59 23:59 Intake Total 2980 440 Output Total 751 202 Balance 2229 238 Meds/Results Medications: Active Medications Generic Name Dose Route Start Last Admin Trade Name Freq PRN Reason Stop Dose Admin Acetaminophen 650 mg 02/19/21 17:46 Acetaminophen 325 Mg Tablet PO Q6H PRN Mild Pain (1-3) or Fever Hydrocodone Bitart/Acetaminophen 1 tab 02/19/21 17:49 02/20/21 07:54 Hydrocodone/Acetaminophen (*Crx) 5-325 Mg Tablet PO 1 tab Q4H PRN Administration Back Pain Rated 4-6 Doxepin HCl 100 mg 02/19/21 21:00 02/19/21 20:57 Doxepin Hcl 25 Mg Capsule PO 100 mg HS SRIRAM Administration Gabapentin 100 mg 02/19/21 09:00 02/19/21 18:07 Gabapentin 100 Mg Capsule PO 100 mg BID SRIRAM Administration Potassium Chloride/Sodium Chloride 1,000 mls @ 125 mls/hr 02/19/21 13:15 02/19/21 21:40 Kcl 40 Meq/Ns IV CONT 60 mls/hr .Q8H SRIRAM Infusion Isosorbide Mononitrate 30 mg 02/19/21 09:00 02/19/21 10:43 Isosorbide Mononitrate 30 Mg Tab.Er.24h PO 30 mg DAILY SRIRAM Administration Lidocaine 1 patch 02/20/21 09:00 Lidocaine 5% Patch TRANSDERM DAILY SRIRAM Ondansetron HCl 4 mg 02/19/21 11:29 02/20/21 07:54 Ondansetron Inj 4 Mg/2 Ml Vial IV PUSH 4 mg Q6H PRN Administration Nausea And Vomiting Pantoprazole Sodium 40 mg 02/19/21 09:00 02/19/21 18:06 Pantoprazole 40 Mg Tablet PO 40 mg BID SRIRAM Administration Pramipexole Dih
[2021-02-20] MEDS: KCL 40 MEQ/0.9% SOD CHL 1,000 ML 60 ML IV CONT ×2 (11:17→21:51)
[2021-02-20] MEDS: PANTOPRAZOLE 40 MG TABLET PO ×2 (11:18→16:55)
[2021-02-20] MEDS: ISOSORBIDE MONONITRATE 30 MG TAB.ER.24H PO (11:18)
[2021-02-20] MEDS: ZONISAMIDE 100 MG CAPSULE PO ×3 (11:18→16:55)
[2021-02-20] MEDS: GABAPENTIN 100 MG CAPSULE PO ×2 (11:18→16:56)
[2021-02-20] MEDS: LIDOCAINE 5% PATCH 1 PATCH TRANSDERM (11:19)
[2021-02-20] MEDS: POTASSIUM CHLORIDE 20 MEQ PACKET (FOR LIQUID) 40 MEQ PO ×2 (13:05→16:56)
--- NOTE | 2021-02-20 16:02 | PM.IMPN ---
Progress Note: A&P Assessment and Plan (1) Acute hypokalemia: Code(s): E87.6 - Hypokalemia Status: Acute Assessment and Plan: Severe hypokalemia likely secondary to for oral intake, poor the aortic to you and ongoing GI losses. Supplemented aggressively with p.o. and IV potassium while closely monitoring potassium in the setting of acute kidney injury. Currently patient is making goodurine which is very reassuring. (2) Hypovolemia: Code(s): E86.1 - Hypovolemia Status: Acute Assessment and Plan: Current likely secondary to GI losses. Continue IV resuscitation. (3) Acute kidney injury superimposed on chronic kidney disease: Code(s): N17.9 - Acute kidney failure, unspecified; N18.9 - Chronic kidney disease, unspecified Status: Acute Assessment and Plan: Baseline CKD with creatinine around 1.5-1.6. Patient only has 1 functional kidney, right kidney is atrophic. CKD secondary to hypertension, vascular disease and smoking. Resolving acute nonoliguric kidney injury in the setting of previously diagnosed chronic kidney disease. urinalysis is negative. Urine lytes are pre renal. KHALIF likely secondary to volume depletion worsening by outpatient diuretic therapy. Patient creatinine has improved from 1.9 to1.7. Continue IV fluid resuscitation. Diuretics are currently on hold (4) Diarrhea: Qualifiers: Diarrhea type: unspecified type Qualified Code(s): R19.7 - Diarrhea, unspecified Code(s): R19.7 - Diarrhea, unspecified Status: Acute Assessment and Plan: unclear in etiology. The stool workup sent today (5) Hyponatremia: Code(s): E87.1 - Hypo-osmolality and hyponatremia Status: Acute Assessment and Plan: This is hypovolemic hyponatremia, likely secondary to appropriate ADH release in the setting of hypovolemia secondary to diarrhea. Urine electrolytes are prerenal. Continue IV fluid resuscitation while closely monitoring output, serial chemistries, and respiratory status. (6) Heart failure: Code(s): I50.9 - Heart failure, unspecified Status: Acute Assessment and Plan: Currently her asymptomatic and hypovolemic. Due to GI losses, the patient hydrochlorothiazide, bumetanide, coreg and spironolactone have been appropriately put on hold. Continue cautious IV fluid hydration. Additional Plan Patient is hypokalemia and hypovolemia likely related to diarrheal illness and decreased oral potassium intake in conjunction with continued diuretic use. The patient's hydrochlorothiazide, Bumex and spironolactone are on hold. Will continue IV fluid hydration. The patient's blood pressures this morning or borderline low so will also hold the patient's home Coreg. Will continue IV fluid hydration. Will check stool for C diff, stool cultures and stool wbc's. Other causes of diarrhea could also be possible including possible withdrawal from start medications. The patient told me that she usually uses Tylenol 3 for her back pain. However I have not seen where the patient had Tylenol 3 filled in the prescription drug monitoring program. Is unclear to me at this time patient is actually getting prescription for Tylenol 3 or if she had this prescription in the distant past or if she has getting the prescription from a not prescribe source. I will resume the patient's home Neurontin and tizanidine. Will check urine drug screen. The patient received 40 of IV potassium in 20 of p.o. potassium in the ER. Repeat BMP has been ordered and is pending. Nephrology has been consulted. Subjective Date/time seen: 02/20/21 10:02 S: patient is examined at the bedside. She is awake and alert. Diarrhea is persistent. However she is feeling a little better. Exam Narrative: PHYSICAL EXAM: WEIGHT 96.3 kg BMI 36.4 General: Obese, no acute distress. blood pressure 110/60, pulse 69, respiration 14, temp 97.6?, O2 sat 97% on room air. The
[2021-02-20] MEDS: DOXEPIN HCL 25 MG CAPSULE 100 MG PO (21:42)
[2021-02-20] MEDS: PRAMIPEXOLE 0.5 MG TABLET PO (21:42)
[2021-02-20] MEDS: PRAMIPEXOLE 1 MG TABLET PO (21:44)
[2021-02-21] VITALS (7 sets, daily range): BP systolic 110–137; BP diastolic 53–68; PULSE 70–90; RESP 18–20; TEMP 36.6; O2SAT 97–100
[2021-02-21] MEDS: HYDROcodone/acetaminophen (*CRX) 5-325 MG TABLET 1 TAB PO ×3 (02:34→21:46)
[2021-02-21 07:03] LABS: Basophils Percent Auto 0.5 % (0.2-1.2); Eosinophils Absolute Auto 0.1 K/mm3 (0-0.3); Eosinophils Percent Auto 2.3 % (0-4.4); Hematocrit 38.6 % (37.0-47.0); Hemoglobin 12.3 g/dL (12.0-15.0); Immature Granulocyte Absolute 0.02 K/mm3 (0.00-0.031); Immature Granulocyte Percent A 0.3 % (0-0.5); Lymphocytes Absolute Auto 2.05 K/mm3 (0.9-3.2); Lymphocytes Percent Auto 33.5 % (18.3-44.2); Mean Corpuscular HGB Conc 31.9 g/dl (32-36); Mean Corpuscular Hemoglobin 30.9 pg (26-34); Mean Platelet Volume 10.6 fl (7.4-10.4); Monocytes Absolute Auto 0.9 K/mm3 (0.1-0.6); Monocytes Percent Auto 15.4 % (2.6-8.5); Neutrophils Absolute Auto 2.9 K/mm3 (1.3-6.7); Platelet Count Result 226 k/mm3 (150-375); Red Blood Count 3.98 M/mm3 (4.2-5.4); Red Cell Distribution Width 14.3 % (11.5-14.5); White Blood Count 6.1 K/mm3 (4.5-10.0)
[2021-02-21 07:38] LABS: Albumin Level 3.5 g/dL (3.5-5.1); Anion Gap 5 mmol/L (8-16); Blood Urea Nitrogen 26 mg/dL (7-17); Carbon Dioxide 24 mmol/L (22-30); Chloride 106 mmol/L (98-107); Estimated CRCL calculation 37 ml/min; Estimated Glomerular Filt Rate 35; Glucose 91 mg/dL (65-110); Phosphorus 2.7 mg/dL (2.5-4.5); Potassium 4.3 mmol/L (3.4-5.0); Sodium 135 mmol/L (137-145)
[2021-02-21] MEDS: ISOSORBIDE MONONITRATE 30 MG TAB.ER.24H PO (08:42)
[2021-02-21] MEDS: PANTOPRAZOLE 40 MG TABLET PO ×2 (08:42→17:29)
[2021-02-21] MEDS: GABAPENTIN 100 MG CAPSULE PO ×2 (08:42→17:30)
[2021-02-21] MEDS: ZONISAMIDE 100 MG CAPSULE PO ×3 (08:42→17:30)
[2021-02-21] MEDS: LIDOCAINE 5% PATCH 1 PATCH TRANSDERM (08:43)
--- NOTE | 2021-02-21 09:00 | PCPTNOTE ---
Attempted therapy session, Pt requested therapist to come back after breakfast, Pt was with RN getting a new IV upon arrival.
--- NOTE | 2021-02-21 09:32 | PCOTNOTE ---
Attempted to see patient at 9:30am, patient currently eating breakfast.
--- NOTE | 2021-02-21 10:05 | P.PNNP_ITS ---
Progress Note: A&P Assessment and Plan (1) KHALIF (acute kidney injury): Code(s): N17.9 - Acute kidney failure, unspecified Status: Acute Assessment and Plan: * KHALIF on top of CKD * UA negative. * Urine electrolytes are pre renal * renal sonogram shows nothing acute. There is severe atrophy of the right kidney. * likely due to a combination of volume depletion from poor oral intake worsened by diarrhea and continued use of outpatient diuretic therapy * She is eating okay. * Will stop IV fluids. (2) Stage 3b chronic kidney disease: Code(s): N18.32 - Chronic kidney disease, stage 3b Status: Chronic Assessment and Plan: * baseline creatinine ~ 1.5 - 1.6mg/dl in the last year or so * secondary to HTN, vascular disease, and smoking (3) Hypokalemia: Code(s): E87.6 - Hypokalemia Status: Acute Assessment and Plan: * Better now. (4) Hyponatremia: Code(s): E87.1 - Hypo-osmolality and hyponatremia Status: Acute Assessment and Plan: * suspect hypovolemic hyponatremia * should correct with IVFs * Sodium almos Subjective Date/time seen: 02/21/21 10:05 Interval history: patient is alert. She feels better. No diarrhea since yesterday afternoon. Physical therapy is coming today to help decide if she can get up on her own. Exam Narrative: WDWN in NAD skin no rash or subQ nodules head ncat lungs clear cor reg no rub or gallop abd BS+ nontender and soft ext trace edema. Objective Data Vital Signs Vital Signs: Vital Signs - 24 hr 02/20/21 12:00 02/20/21 14:08 02/20/21 16:00 Temperature 36.4 C Pulse Rate 73 69 69 Respiratory Rate 14 Blood Pressure 110/61 Pulse Oximetry 97 02/20/21 20:00 02/20/21 22:00 02/21/21 00:00 Temperature 37.2 C Pulse Rate 82 72 77 Respiratory Rate 20 Blood Pressure 113/58 L Pulse Oximetry 97 02/21/21 04:00 02/21/21 05:53 Temperature 36.6 C Pulse Rate 72 72 Respiratory Rate 18 Blood Pressure 110/53 L Pulse Oximetry 98 Intake/Output Intake/Output: Intake & Output 02/18/21 02/19/21 02/20/21/07/21 23:59 23:59 23:59 23:59 Intake Total 3980 7440 240 Output Total 751 202 Balance 3229 6978 240 Meds/Results Medications: Active Medications Generic Name Dose Route Start Last Admin Trade Name Freq PRN Reason Stop Dose Admin Acetaminophen 650 mg 02/19/21 17:46 Acetaminophen 325 Mg Tablet PO Q6H PRN Mild Pain (1-3) or Fever Hydrocodone Bitart/Acetaminophen 1 tab 02/19/21 17:49 02/21/21 02:34 Hydrocodone/Acetaminophen (*Crx) 5-325 Mg Tablet PO 1 tab Q4H PRN Administration Back Pain Rated 4-6 Doxepin HCl 100 mg 02/19/21 21:00 02/20/21 21:42 Doxepin Hcl 25 Mg Capsule PO 100 mg HS SRIRAM Administration Gabapentin 100 mg 02/19/21 09:00 02/21/21 08:42 Gabapentin 100 Mg Capsule PO 100 mg BID SRIRAM Administration Potassium Chloride/Sodium Chloride 1,000 mls @ 125 mls/hr 02/19/21 13:15 02/20/21 22:10 Kcl 40 Meq/Ns IV CONT 125 mls/hr .Q8H SRIRAM Inf
--- NOTE | 2021-02-21 10:05 | PM.PNNEP ---
Progress Note: A&P Assessment and Plan (1) KHALIF (acute kidney injury): Code(s): N17.9 - Acute kidney failure, unspecified Status: Acute Assessment and Plan: KHALIF on top of CKD UA negative. Urine electrolytes are pre renal renal sonogram shows nothing acute. There is severe atrophy of the right kidney. likely due to a combination of volume depletion from poor oral intake worsened by diarrhea and continued use of outpatient diuretic therapy She is eating okay. Will stop IV fluids. (2) Stage 3b chronic kidney disease: Code(s): N18.32 - Chronic kidney disease, stage 3b Status: Chronic Assessment and Plan: baseline creatinine ~ 1.5 - 1.6mg/dl in the last year or so secondary to HTN, vascular disease, and smoking (3) Hypokalemia: Code(s): E87.6 - Hypokalemia Status: Acute Assessment and Plan: Better now. (4) Hyponatremia: Code(s): E87.1 - Hypo-osmolality and hyponatremia Status: Acute Assessment and Plan: suspect hypovolemic hyponatremia should correct with IVFs Sodium almos Subjective Date/time seen: 02/21/21 10:05 Interval history: patient is alert. She feels better. No diarrhea since yesterday afternoon. Physical therapy is coming today to help decide if she can get up on her own. Exam Narrative: WDWN in NAD skin no rash or subQ nodules head ncat lungs clear cor reg no rub or gallop abd BS+ nontender and soft ext trace edema. Objective Data Vital Signs Vital Signs: Vital Signs - 24 hr 02/20/21 12:00 02/20/21 14:08 02/20/21 16:00 Temperature 36.4 C Pulse Rate 73 69 69 Respiratory Rate 14 Blood Pressure 110/61 Pulse Oximetry 97 02/20/21 20:00 02/20/21 22:00 02/21/21 00:00 Temperature 37.2 C Pulse Rate 82 72 77 Respiratory Rate 20 Blood Pressure 113/58 L Pulse Oximetry 97 02/21/21 04:00 02/21/21 05:53 Temperature 36.6 C Pulse Rate 72 72 Respiratory Rate 18 Blood Pressure 110/53 L Pulse Oximetry 98 Intake/Output Intake/Output: Intake & Output 12/04/21 12/05/21 12/06/21 12/07/21 23:59 23:59 23:59 23:59 Intake Total 3980 3570 240 Output Total 751 202 Balance 3229 3368 240 Meds/Results Medications: Active Medications Generic Name Dose Route Start Last Admin Trade Name Freq PRN Reason Stop Dose Admin Acetaminophen 650 mg 02/19/21 17:46 Acetaminophen 325 Mg Tablet PO Q6H PRN Mild Pain (1-3) or Fever Hydrocodone Bitart/Acetaminophen 1 tab 02/19/21 17:49 02/21/21 02:34 Hydrocodone/Acetaminophen (*Crx) 5-325 Mg Tablet PO 1 tab Q4H PRN Administration Back Pain Rated 4-6 Doxepin HCl 100 mg 02/19/21 21:00 02/20/21 21:42 Doxepin Hcl 25 Mg Capsule PO 100 mg HS SRIRAM Administration Gabapentin 100 mg 02/19/21 09:00 02/21/21 08:42 Gabapentin 100 Mg Capsule PO 100 mg BID SRIRAM Administration Potassium Chloride/Sodium Chloride 1,000 mls @ 125 mls/hr 02/19/21 13:15 02/20/21 22:10 Kcl 40 Meq/Ns IV CONT 125 mls/hr .Q8H SRIRAM Infusion Isosorbide Mononitrate 30 mg 02/19/21 09:00 02/21/21 08:42 Isosorbide Mononitrate 30 Mg Tab.Er.24h PO 30 mg DAILY SRIRAM Administration Lidocaine 1 patch 02/20/21 09:00 02/21/21 08:43 Lidocaine 5% Patch TRANSDERM 1 patch DAILY SRIRAM Administration Ondansetron HCl 4 mg 02/19/21 11:29 02/20/21 14:17 Ondansetron Inj 4 Mg/2 Ml Vial IV PUSH 4 mg Q6H PRN Administration Nausea And Vomiting Pantoprazole Sodium 40 mg 02/19/21 09:00 02/21/21 08:42 Pantoprazole 40 Mg Tablet PO 40 mg BID SRIRAM Administration Pramipexole Dihydrochloride 1 mg 02/19/21 21:00 02/20/21 21:44 Pramipexole 1 Mg Tablet PO 1 mg HS SRIRAM Administration Pramipexole Dihydrochloride 0.5 mg 02/19/21 21:00 02/20/21 21:42 Pramipexole 0.5 Mg Tablet PO 0.5 mg HS SRIRAM Administration Tizanidine HCl 8 mg 02/19/21 06:25 02/19/21 20:57 Tizanidine Hcl 4
--- NOTE | 2021-02-21 12:28 | PM.IMPN ---
Progress Note: A&P Assessment and Plan (1) Acute hypokalemia: Code(s): E87.6 - Hypokalemia Status: Acute Assessment and Plan: Severe persistent hypokalemia was likely secondary to poor oral intake, outpatient diuretic therapy and ongoing GI losses. Supplemented aggressively with p.o. and IV potassium while closely monitoring potassium in the setting of acute kidney injury. Kidney function has recovered O2 creatinine and at 1.5 which is her baseline. Potassium today is 4.3. (2) Hypovolemia: Code(s): E86.1 - Hypovolemia Status: Acute Assessment and Plan: Current likely secondary to GI losses. Continue IV resuscitation. (3) Acute kidney injury superimposed on chronic kidney disease: Code(s): N17.9 - Acute kidney failure, unspecified; N18.9 - Chronic kidney disease, unspecified Status: Acute Assessment and Plan: Recovered acute kidney injury with a creatinine of 1.5 today which is her baseline.Baseline CKD with creatinine around 1.5-1.6. Patient only has 1 functional kidney, as the right kidney is atrophic. CKD secondary to hypertension, vascular disease and smoking. Resolving acute nonoliguric kidney injury in the setting of previously diagnosed chronic kidney disease. urinalysis is negative. Urine lytes are pre renal. KHALIF likely secondary to volume depletion worsening by outpatient diuretic therapy. Patient creatinine has improved from 1.7 to1.5. Continue IV fluid resuscitation. Diuretics are currently on hold. patient is stable for discharge. (4) Diarrhea: Qualifiers: Diarrhea type: unspecified type Qualified Code(s): R19.7 - Diarrhea, unspecified Code(s): R19.7 - Diarrhea, unspecified Status: Acute Assessment and Plan: unclear in etiology. The stool workup sent Yesterday was unrevealing. (5) Hyponatremia: Code(s): E87.1 - Hypo-osmolality and hyponatremia Status: Acute Assessment and Plan: This is hypovolemic hyponatremia, likely secondary to appropriate ADH release in the setting of hypovolemia secondary to diarrhea. Urine electrolytes are prerenal. Sodium is clearly improved with adequate IV resuscitation. (6) Heart failure: Code(s): I50.9 - Heart failure, unspecified Status: Acute Assessment and Plan: Currently her asymptomatic and hypovolemic. Due to GI losses, the patient hydrochlorothiazide, bumetanide, coreg and spironolactone have been appropriately put on hold. Continue cautious IV fluid hydration. resume diuretics at the time of discharge. This should be okay as long as oral intake is preserved and there are no ongoing GI losses. Additional Plan Patient is hypokalemia and hypovolemia likely related to diarrheal illness and decreased oral potassium intake in conjunction with continued diuretic use. The patient's hydrochlorothiazide, Bumex and spironolactone are on hold. Will continue IV fluid hydration. The patient's blood pressures this morning or borderline low so will also hold the patient's home Coreg. Will continue IV fluid hydration. Will check stool for C diff, stool cultures and stool wbc's. Other causes of diarrhea could also be possible including possible withdrawal from start medications. The patient told me that she usually uses Tylenol 3 for her back pain. However I have not seen where the patient had Tylenol 3 filled in the prescription drug monitoring program. Is unclear to me at this time patient is actually getting prescription for Tylenol 3 or if she had this prescription in the distant past or if she has getting the prescription from a not prescribe source. I will resume the patient's home Neurontin and tizanidine. Will check urine drug screen. The patient received 40 of IV potassium in 20 of p.o. potassium in the ER. Repeat BMP has been ordered and is pending. Nephrology has been consulted. Subjective Date/time seen: 02/21/21 12:28 S: patient is exam
--- NOTE | 2021-02-21 12:35 | PM.DS ---
DS: Admitting Diagnosis Discharge Date 02/22/2021 Admitting Diagnosis (1) Acute hypokalemia: (2) Hypovolemia: (3) Acute kidney injury superimposed on chronic kidney disease. (4) Diarrhea: DS: Discharge Diagnosis Discharge Diagnosis (1) Acute hypokalemia: Code(s): E87.6 - Hypokalemia Status: Acute Assessment and Plan: Resolved hypokalemia, after PO/IV repletion. Hypokalemia was likely secondary to poor oral intake, outpatient diuretic therapy and ongoing GI losses. Supplemented aggressively with p.o. and IV potassium while closely monitoring potassium in the setting of acute kidney injury. Kidney function has recovered O2 creatinine and at 1.4 which is her baseline. Potassium today is 4.3. (2) Hypovolemia: Code(s): E86.1 - Hypovolemia Status: Acute Assessment and Plan: Current likely secondary to GI losses. Continue IV resuscitation. (3) Acute kidney injury superimposed on chronic kidney disease: Code(s): N17.9 - Acute kidney failure, unspecified; N18.9 - Chronic kidney disease, unspecified Status: Acute Assessment and Plan: Recovered acute kidney injury with a creatinine of 1.4 today which is her baseline.Baseline CKD with creatinine around 1.5-1.6. Patient only has a single functional kidney, as the right kidney is atrophic. CKD secondary to hypertension, vascular disease and smoking. Resolving acute nonoliguric kidney injury in the setting of previously diagnosed chronic kidney disease. urinalysis is negative. Urine lytes are pre renal. KHALIF likely secondary to volume depletion worsening by outpatient diuretic therapy. Patient creatinine has improved from 1.7 to 1.4. Continue IV fluid resuscitation. Diuretics are currently on hold. patient is stable for discharge. (4) Diarrhea: Qualifiers: Diarrhea type: unspecified type Qualified Code(s): R19.7 - Diarrhea, unspecified Code(s): R19.7 - Diarrhea, unspecified Status: Acute Assessment and Plan: Unclear in etiology. Likely viral enteritis. The stool workup was unrevealing. Oral intake is adequate. (5) Hyponatremia: Code(s): E87.1 - Hypo-osmolality and hyponatremia Status: Acute Assessment and Plan: Resolved. This is hypovolemic hyponatremia, likely secondary to appropriate ADH release in the setting of hypovolemia secondary to diarrhea. Urine electrolytes are prerenal. Sodium is clearly improved with adequate IV resuscitation. (6) Heart failure: Code(s): I50.9 - Heart failure, unspecified Status: Acute Assessment and Plan: Currently her asymptomatic and hypovolemic. Due to GI losses, the patient hydrochlorothiazide, bumetanide, coreg and spironolactone have been appropriately put on hold. Stop IV fluid hydration.Resume diuretics at the time of discharge. This should be okay as long as oral intake is preserved and there are no ongoing GI losses. DS: Summary Hospital Course Reason for hospitalization: Chief Complaint: Weakness, decreased appetite and diarrhea. Hospital Course: 65-year-old female with a past medical history of stage 3 chronic kidney disease, hypertension, CHF and chronic back pain who presented to the ER for evaluation of weakness. She reports that she follows with Dr. Kuldeep Gates regarding her kidney disease and that her GFR is usually around 30. The patient reports that she has been having 2 weeks of progressive weakness that worsened on the day of presentation. She states that for the last 2 weeks he has had decreased appetite and just feels as if he cannot eat. She will eat a few bites of food and be done. She denies sensation of early satiety. She states that she cannot give any more details she just ?can not eat?. She does experience occasional nausea. She has not been having any vomiting. She has also had about a week of diarrhea. She reports that her stools have been watery and brown in color. She is having 3-4 loos
[2021-02-21] MEDS: ONDANSETRON INJ 4 MG/2 ML VIAL IV PUSH (13:03)
--- NOTE | 2021-02-21 16:08 | PC.NURSE ---
patient has discharge order. talked with patient. patient states that she feels too weak and sick to go home. patient states that she will go to her daughter. patient states that if she is discharged, she will go to her daughters and fall and les the hospital. I notified Dr. Jacobs of patient's concerns. Dr Jacobs states patient has chronic nausea issues and weakness. Denisa notified of patient's concerns regarding ride. Cab voucher set up. Call placed to patient's daughter Rachael and she states that she also has concerns regarding patient's weakness. Daughter stated that patient had fallen recently and was too weak to shower at home recently. Dr. Jacobs notified of daughters concerns and asked to speak with daughter when able. daughter name and phone number given. I notified the housekeeping staff regarding patient's concerns. Chuck Wagon Cook to discuss with care coordination and call me back.
--- NOTE | 2021-02-21 17:09 | PCCCNOTE ---
Addendum entered by Marifer Bynum RN 02/21/21 18:37: Followed up with patient to make sure she had called [employer], She states that she did. It was closed so she had to leave a message, states that they close at 5pm. She was directed to leave a message and she states that she did, she provided her name, and phone #. container coordinator calls the [employer] line to confirm and gets the same thing message and prompts that the patient describes. Patient also advised to call [employer] at the number on the IM form gamaliel also. Mbr verbalizes understanding. Original Note: Called by bedside GLENYS Gibbons as patient wants to appeal her discharge. Met with patient at bedside, Provided her with the IM sheet and discussed how to file her appeal. Advised that she needs to call millie or by midnight, patient verbalizes understanding and has phone at bedside.
--- NOTE | 2021-02-21 19:01 | PC.NURSE ---
at 1640 patient states that she would like to appeal discharge. Dr. Jacobs notified and orders received to leave tele off and ok to leave iv out. talked with Jacqueline in ER about appeal process and she is coming up to talk patient through the steps. patient is aware that she is staying for tonight. She asked that i call her daughter Rachael and let her know as well. Daughter notified and all questions answered at this time.
[2021-02-21] MEDS: DOXEPIN HCL 25 MG CAPSULE 100 MG PO (21:45)
[2021-02-21] MEDS: PRAMIPEXOLE 1 MG TABLET PO (21:46)
[2021-02-21] MEDS: PRAMIPEXOLE 0.5 MG TABLET PO (21:46)
[2021-02-22] MEDS: TIZANIDINE HCL 4 MG TABLET 8 MG PO
[2021-02-22 05:32] VITALS: BP 106/67; PULSE 80; RESP 18; TEMP 36.2; O2SAT 98
[2021-02-22 08:00] LABS: Basophils Percent Auto 0.5 % (0.2-1.2); Eosinophils Absolute Auto 0.1 K/mm3 (0-0.3); Eosinophils Percent Auto 1.6 % (0-4.4); Hematocrit 36.6 % (37.0-47.0); Immature Granulocyte Absolute 0.02 K/mm3 (0.00-0.031); Immature Granulocyte Percent A 0.3 % (0-0.5); Lymphocytes Absolute Auto 1.27 K/mm3 (0.9-3.2); Mean Corpuscular HGB Conc 32.8 g/dl (32-36); Mean Corpuscular Hemoglobin 31.4 pg (26-34); Mean Corpuscular Volume 95.8 fl (80-100); Mean Platelet Volume 10.3 fl (7.4-10.4); Monocytes Absolute Auto 0.7 K/mm3 (0.1-0.6); Monocytes Percent Auto 12.8 % (2.6-8.5); Neutrophils Absolute Auto 3.6 K/mm3 (1.3-6.7); Neutrophils Percent Auto 62.8 % (45.5-73.1); Platelet Count Result 214 k/mm3 (150-375); Red Blood Count 3.82 M/mm3 (4.2-5.4); Red Cell Distribution Width 14.6 % (11.5-14.5); White Blood Count 5.8 K/mm3 (4.5-10.0)
[2021-02-22 08:14] LABS: Albumin Level 3.4 g/dL (3.5-5.1); Anion Gap 8 mmol/L (8-16); Blood Urea Nitrogen 22 mg/dL (7-17); Carbon Dioxide 23 mmol/L (22-30); Chloride 107 mmol/L (98-107); Estimated CRCL calculation 39 ml/min; Estimated Glomerular Filt Rate 38; Glucose 91 mg/dL (65-110); Phosphorus 2.9 mg/dL (2.5-4.5); Potassium 4.3 mmol/L (3.4-5.0); Sodium 138 mmol/L (137-145)
[2021-02-22] MEDS: ISOSORBIDE MONONITRATE 30 MG TAB.ER.24H PO (09:04)
[2021-02-22] MEDS: LIDOCAINE 5% PATCH 1 PATCH TRANSDERM (09:04)
[2021-02-22] MEDS: PANTOPRAZOLE 40 MG TABLET PO ×2 (09:04→16:20)
[2021-02-22] MEDS: ZONISAMIDE 100 MG CAPSULE PO ×3 (09:04→16:20)
[2021-02-22] MEDS: GABAPENTIN 100 MG CAPSULE PO ×2 (09:04→16:20)
[2021-02-22] MEDS: HYDROcodone/acetaminophen (*CRX) 5-325 MG TABLET 1 TAB PO (11:21)
--- NOTE | 2021-02-22 11:35 | PM.IMPN ---
Progress Note: A&P Assessment and Plan (1) Acute hypokalemia: Code(s): E87.6 - Hypokalemia Status: Acute Assessment and Plan: Resolved hypokalemia, after PO/IV repletion. Hypokalemia was likely secondary to poor oral intake, outpatient diuretic therapy and ongoing GI losses. Supplemented aggressively with p.o. and IV potassium while closely monitoring potassium in the setting of acute kidney injury. Kidney function has recovered O2 creatinine and at 1.4 which is her baseline. Potassium today is 4.3. (2) Hypovolemia: Code(s): E86.1 - Hypovolemia Status: Acute Assessment and Plan: Current likely secondary to GI losses. Continue IV resuscitation. (3) Acute kidney injury superimposed on chronic kidney disease: Code(s): N17.9 - Acute kidney failure, unspecified; N18.9 - Chronic kidney disease, unspecified Status: Acute Assessment and Plan: Recovered acute kidney injury with a creatinine of 1.4 today which is her baseline.Baseline CKD with creatinine around 1.5-1.6. Patient only has a single functional kidney, as the right kidney is atrophic. CKD secondary to hypertension, vascular disease and smoking. Resolving acute nonoliguric kidney injury in the setting of previously diagnosed chronic kidney disease. urinalysis is negative. Urine lytes are pre renal. KHALIF likely secondary to volume depletion worsening by outpatient diuretic therapy. Patient creatinine has improved from 1.7 to 1.4. Continue IV fluid resuscitation. Diuretics are currently on hold. patient is stable for discharge. (4) Diarrhea: Qualifiers: Diarrhea type: unspecified type Qualified Code(s): R19.7 - Diarrhea, unspecified Code(s): R19.7 - Diarrhea, unspecified Status: Acute Assessment and Plan: Unclear in etiology. Likely viral enteritis. The stool workup was unrevealing. Oral intake is adequate. (5) Hyponatremia: Code(s): E87.1 - Hypo-osmolality and hyponatremia Status: Acute Assessment and Plan: Resolved. This is hypovolemic hyponatremia, likely secondary to appropriate ADH release in the setting of hypovolemia secondary to diarrhea. Urine electrolytes are prerenal. Sodium is clearly improved with adequate IV resuscitation. (6) Heart failure: Code(s): I50.9 - Heart failure, unspecified Status: Acute Assessment and Plan: Currently her asymptomatic and hypovolemic. Due to GI losses, the patient hydrochlorothiazide, bumetanide, coreg and spironolactone have been appropriately put on hold. Stop IV fluid hydration.Resume diuretics at the time of discharge. This should be okay as long as oral intake is preserved and there are no ongoing GI losses. Subjective Date/time seen: 02/22/21 14:35 Review of Systems Gastrointestinal: Gastrointestinal: Denies diarrhea, Reports nausea and Denies vomiting Exam Narrative: PHYSICAL EXAM: WEIGHT 96.3 kg BMI 36.4 General: Obese, no acute distress. blood pressure 102/58, pulse 73, respiration 18, temp 97.4?F, O2 sat 97-100 % on room air. Total intake 1.5L. HEENT: Mucous membranes are dry, no oral pharyngeal erythema, pupils are equal and reactive Respiratory: Clear to auscultation bilaterally, no increased work of breathing Cardiovascular: Regular rate, regular rhythm, 2+ bilateral radial pedal pulses Gastrointestinal: Hyperactive bowel sounds, nondistended, generalized tenderness on palpation worse in the left periumbilical region, multiple abdominal scars noted Skin: Multiple postsurgical scars noted on abdomen, non jaundice Musculoskeletal: No clubbing, cyanosis or edema Neurological: Alert and oriented, speech is clear, no facial asymmetry Psychiatric: Flat affect, cooperative : Deferred Hematologic/lymphatic: No anterior cervical or submandibular lymphadenopathy, no petechiae, no bruising Objective Data Vital Signs Vital Signs: Vital Signs - 24 hr 02/21/21 22:00 02/22/21
--- NOTE | 2021-02-22 11:46 | PM.PNNEP ---
Progress Note: A&P Assessment and Plan (1) KHALIF (acute kidney injury): Code(s): N17.9 - Acute kidney failure, unspecified Status: Acute Assessment and Plan: KHALIF on top of CKD UA negative. Urine electrolytes are pre renal renal sonogram shows nothing acute. There is severe atrophy of the right kidney. likely due to a combination of volume depletion from poor oral intake worsened by diarrhea and continued use of outpatient diuretic therapy creatinine is baseline. Eating well. (2) Stage 3b chronic kidney disease: Code(s): N18.32 - Chronic kidney disease, stage 3b Status: Chronic Assessment and Plan: baseline creatinine ~ 1.5 - 1.6mg/dl in the last year or so secondary to HTN, vascular disease, and smoking (3) Hypokalemia: Code(s): E87.6 - Hypokalemia Status: Acute Assessment and Plan: Resolved (4) Hyponatremia: Code(s): E87.1 - Hypo-osmolality and hyponatremia Status: Acute Assessment and Plan: resolved Subjective Date/time seen: 02/22/21 11:46 Interval history: patient is alert. She feels better. No diarrhea since Saturday. Physical therapy is coming today to help decide if she can get up on her own. Exam Narrative: WDWN in NAD skin no rash or subQ nodules head ncat lungs clear bilaterally cor reg no rub or gallop abd BS+ nontender and soft ext trace edema. Objective Data Vital Signs Vital Signs: Vital Signs - 24 hr 02/21/21 12:00 02/21/21 14:00 02/21/21 22:00 Temperature 36.6 C 36.6 C Pulse Rate 90 85 81 Respiratory Rate 18 20 Blood Pressure 137/57 L 129/68 Pulse Oximetry 97 100 02/22/21 05:32 Temperature 36.2 C L Pulse Rate 80 Respiratory Rate 18 Blood Pressure 106/67 Pulse Oximetry 98 Intake/Output Intake/Output: Intake & Output 02/19/21 02/20/21 02/21/21 02/22/21 23:59 23:59 23:59 23:59 Intake Total 3980 3570 2260 790 Output Total 751 202 Balance 3229 3368 2260 790 Meds/Results Medications: Active Medications Generic Name Dose Route Start Last Admin Trade Name Freq PRN Reason Stop Dose Admin Acetaminophen 650 mg 02/19/21 17:46 Acetaminophen 325 Mg Tablet PO Q6H PRN Mild Pain (1-3) or Fever Hydrocodone Bitart/Acetaminophen 1 tab 02/19/21 17:49 02/22/21 11:21 Hydrocodone/Acetaminophen (*Crx) 5-325 Mg Tablet PO 1 tab Q4H PRN Administration Back Pain Rated 4-6 Doxepin HCl 100 mg 02/19/21 21:00 02/21/21 21:45 Doxepin Hcl 25 Mg Capsule PO 100 mg HS SRIRAM Administration Gabapentin 100 mg 02/19/21 09:00 02/22/21 09:04 Gabapentin 100 Mg Capsule PO 100 mg BID SRIRAM Administration Isosorbide Mononitrate 30 mg 02/19/21 09:00 02/22/21 09:04 Isosorbide Mononitrate 30 Mg Tab.Er.24h PO 30 mg DAILY SRIRAM Administration Lidocaine 1 patch 02/20/21 09:00 02/22/21 09:04 Lidocaine 5% Patch TRANSDERM 1 patch DAILY SRIRAM Administration Ondansetron HCl 4 mg 02/19/21 11:29 02/21/21 13:03 Ondansetron Inj 4 Mg/2 Ml Vial IV PUSH 4 mg Q6H PRN Administration Nausea And Vomiting Pantoprazole Sodium 40 mg 02/19/21 09:00 02/22/21 09:04 Pantoprazole 40 Mg Tablet PO 40 mg BID SRIRAM Administration Pramipexole Dihydrochloride 1 mg 02/19/21 21:00 02/21/21 21:46 Pramipexole 1 Mg Tablet PO 1 mg HS SRIRAM Administration Pramipexole Dihydrochloride 0.5 mg 02/19/21 21:00 02/21/21 21:46 Pramipexole 0.5 Mg Tablet PO 0.5 mg HS SRIRAM Administration Tizanidine HCl 8 mg 02/19/21 06:25 02/22/21 00:00 Tizanidine Hcl 4 Mg Tablet PO 8 mg HS PRN Administration Muscle Pain Zonisamide 100 mg 02/19/21 09:00 02/22/21 09:04 Zonisamide 100 Mg Capsule PO 100 mg TID SRIRAM Administration Radiology Results: ITS Impressions Chest X-Ray 02/19/21 10:18 IMPRESSION: 1. No acute cardiopulmonary disease. Abdomen/Pelvis CT 02/19/21 13:41 IMPRESSION: 1. Right nephrolith
--- NOTE | 2021-02-22 13:17 | PCPTNOTE ---
Attempted to see patient for Physical Therapy this PM. Patient stated that she wanted to eat her ice cream before doing therapy.
[2021-02-22 14:00] VITALS: BP 102/58; PULSE 73; RESP 18; TEMP 36.3
--- NOTE | 2021-02-22 15:00 | PCOTNOTE ---
Attempted to see pt. on this date, pt. with PT, will continue plan of care tomorrow.
[2021-02-23 16:43] LABS: Chloride Rand Ur 31 mmol/L (32-290); Chloride/Creatinine Rand Ur 25 (38-318); Creatinine Random Urine 122 mg/dL (20-275)
== END 2021-02-22 18:19 | disposition home or self-care (01) | DRG 683 ==
LOC: ANHED 02-19 00:48 → ANH3MEDSUR 02-19 05:37
PROVIDERS: Internal Medicine Nephrology; Admitting Provider Internal Medicine; Emergency Provider Emergency Medicine; Visit Provider Internal Medicine
DX: N17.9 Acute kidney failure, unspecified (principal); E87.1 Hypo-osmolality and hyponatremia; I13.0 Hypertensive heart and chronic kidney disease with heart failure and stage 1 through stage 4 chronic kidney disease, or unspecified chronic kidney disease; A08.4 Viral intestinal infection, unspecified; N18.32 Chronic kidney disease, stage 3b; I50.9 Heart failure, unspecified; Z23 Encounter for immunization; E87.6 Hypokalemia; R19.7 Diarrhea, unspecified; F17.210 Nicotine dependence, cigarettes, uncomplicated; F32.A Depression, unspecified; K21.9 Gastro-esophageal reflux disease without esophagitis; G25.81 Restless legs syndrome; Z90.710 Acquired absence of both cervix and uterus; Z98.42 Cataract extraction status, left eye; Z98.41 Cataract extraction status, right eye; E66.9 Obesity, unspecified; Z68.36 Body mass index [BMI] 36.0-36.9, adult
CPT/HCPCS: 36415; 71046; 74176; 76775; 80048; 80053; 80069; 80307; 81001; 82436; 82570; 82948; 83690; 83735; 84100; 84295; 84300; 84540; 85025; 87015; 87045; 87269; 87272; 87324; 87427; 87493; 89055; 90471; 90653; 93005; 96361; 96365; 96375; 97110; 97116; 97162; 97165; 97530; 97535; 99285; A9270; G0008; J0131; J2405; J3480; J7030

== ENCOUNTER 2021-03-15 13:55 | Outpatient (CLI) | payer OTHER, SELFPAY ==
[2021-03-15 14:19] LABS: Creatinine Urine 58.21 mg/dL (40-278); Total Protein Urine Random 9.4 mg/dL (0.0-11.9); Ur Ttl Prot Creatinine Ratio 0.16 mg/mg (0-0.20)
[2021-03-15 14:39] LABS: Albumin Level 3.6 g/dL (3.4-5.0); Anion Gap 13 mmol/L (8-16); Blood Urea Nitrogen 22 mg/dL (7-18); Calcium 9.1 mg/dL (8.5-10.1); Carbon Dioxide 27 mmol/L (21-32); Chloride 99 mmol/L (98-108); Estimated Glomerular Filt Rate 30; Glucose 92 mg/dL (70-99); Osmolality Calculated 291 mOsm/kg (285-295); Phosphorus 4.8 mg/dL (2.6-4.7); Potassium 4.3 mmol/L (3.5-5.1); Sodium 139 mmol/L (136-145)
== END 2021-03-15 13:56 | disposition home or self-care (01) ==
LOC: CHSLAB 13:59
PROVIDERS: Visit Provider Internal Medicine Nephrology
DX: N18.4 Chronic kidney disease, stage 4 (severe) (principal)
CPT/HCPCS: 36415; 80069; 82570; 84156

== ENCOUNTER 2021-07-15 10:52 | Outpatient (CLI) | payer OTHER, SELFPAY ==
[2021-07-15 11:20] LABS: Basophils Absolute Auto 0.08 K/mm3 (0.00-0.10); Basophils Percent Auto 0.5 % (0.0-1.0); Eosinophils Absolute Auto 0.11 K/mm3 (0.02-0.50); Eosinophils Percent Auto 0.7 % (1.0-6.0); Hematocrit 47.1 % (35.0-42.0); Hemoglobin 16.2 g/dL (11.7-13.8); Immature Granulocyte Absolute 0.13 K/mm3 (0.00-0.00); Immature Granulocyte Percent A 0.8 % (0.0-0.0); Lymphocytes Percent Auto 13.6 % (18.0-42.0); Mean Corpuscular HGB Conc 34.4 g/dL (32.0-36.0); Mean Corpuscular Hemoglobin 32.7 pg (27.0-31.0); Mean Corpuscular Volume 95.2 fL (78.0-102.0); Mean Platelet Volume 10.3 fl (9.2-11.8); Monocytes Percent Auto 7.4 % (2.0-11.0); Neutrophils Absolute Auto 12.5 K/mm3 (1.7-7.2); Platelet Count Result 257 K/mm3 (150-420); Red Blood Count 4.95 M/mm3 (4.20-5.40); Red Cell Distribution Width 14.3 % (11.6-14.4); White Blood Count 16.2 K/mm3 (4.8-10.8)
[2021-07-15 11:25] LABS: Creatinine Urine 44.16 mg/dL (40-278); Total Protein Urine Random < 6.0 mg/dL (0.0-11.9); Ur Ttl Prot Creatinine Ratio 0.14 mg/mg (0-0.20)
[2021-07-15 11:44] LABS: Anion Gap 12 mmol/L (8-16); Blood Urea Nitrogen 73 mg/dL (7-18); Calcium 9.8 mg/dL (8.5-10.1); Carbon Dioxide 30 mmol/L (21-32); Chloride 88 mmol/L (98-108); Estimated Glomerular Filt Rate 16; Glucose 111 mg/dL (70-99); Osmolality Calculated 292 mOsm/kg (285-295); Phosphorus 3.6 mg/dL (2.6-4.7); Potassium 2.6 mmol/L (3.5-5.1); Sodium 130 mmol/L (136-145)
[2021-07-18 14:42] LABS: Parathyroid Intact 84 pg/mL (14-64)
== END 2021-07-15 10:53 | disposition home or self-care (01) ==
LOC: CHSLAB 10:56
PROVIDERS: Visit Provider Internal Medicine Nephrology
DX: N18.4 Chronic kidney disease, stage 4 (severe) (principal)
CPT/HCPCS: 36415; 80069; 82570; 83970; 84156; 85025

== ENCOUNTER 2021-07-17 20:48 | Emergency (ER) | payer OTHER, SELFPAY ==
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
[2021-07-17 21:02] VITALS: BP 143/83; PULSE 89; RESP 20; TEMP 36.9; O2SAT 95
[2021-07-17] MEDS: HYDROmorphone HCL INJ (*CRX) 2 MG/ML VIAL 0.5 MG IM (21:40)
[2021-07-17] MEDS: ONDANSETRON HCL ODT 4 MG TABLET PO (21:40)
[2021-07-17 21:45] VITALS: BP 133/70; PULSE 80; RESP 20; TEMP 36.1; O2SAT 98
== END 2021-07-17 21:56 | disposition home or self-care (01) ==
PROVIDERS: Emergency Provider Internal Medicine Critical Care Medicine
DX: M54.50 Low back pain, unspecified (principal)
CPT/HCPCS: 96372; 99283; A9270; J1170

== ENCOUNTER 2021-08-03 02:09 | Inpatient (IN) | payer OTHER, SELFPAY ==
[2021-08-03] VITALS (10 sets, daily range): BP systolic 108–144; BP diastolic 51–89; PULSE 66–98; RESP 14–20; TEMP 36.1–36.7; O2SAT 94–99; BMI 34.2
--- NOTE | 2021-08-03 | ECHO_ITS ---
Patient Info Name: Sherrie Giang Age: 66 years : 1955 Gender: Female Ht: 64 in Wt: 189 lbs BSA: 2.00 m2 HR: 68 bpm BP: 126 / 69 mmHg Technical Quality: Fair Exam Date: 08/03/2021 9:56 AM Exam Location: [facility] [facility]am Room: [facility] Patient Status: Inpatient Admit Date: 08/03/2021 Staff Ordering Physician: Kuldeep Gates MD Professor Of Theology: Mel Martin RDCS Attending Provider: Raul Sawin MD Referring Physician: Yajaira TEJADA; Exam Type: CA echo doppler color flow Study Info Indications - CHF Complete two-dimensional, color flow and Doppler transthoracic echocardiogram is performed. Summary 1. Complete two-dimensional, color flow and Doppler transthoracic echocardiogram is performed. 2. Left ventricular systolic function is normal, estimated at 60-65%. 3. The left ventricular diastolic function is grade I diastolic dysfunction. 4. There is mild tricuspid valve regurgitation. 5. There is mild mitral valve calcification. Left Ventricle Left ventricular chamber dimension is normal. Left ventricular systolic function is normal, estimated at 60-65%. There is no increased left ventricular wall thickness. Left ventricular septal wall motion is normal. The left ventricular diastolic function is grade I diastolic dysfunction. Right Ventricle Right ventricular chamber dimension is normal. Right ventricular systolic function is normal. Left Atria Left atrial chamber dimension is normal. Right Atria Right atrial chamber dimension is normal. Aortic Valve The aortic valve is probable trileaflet. There is no aortic valve sclerosis. There is no aortic valve stenosis. There is no aortic valve regurgitation. There is mild aortic valve calcification. Pulmonic Valve The pulmonic valve is normal. There is no pulmonic valve stenosis. There is no pulmonic regurgitation. Mitral Valve The mitral valve has normal leaflets. There is no mitral valve stenosis. There is no mitral valve regurgitation. There is mild mitral valve calcification. Tricuspid Valve The tricuspid valve leaflets are normal. There is no significant tricuspid valve stenosis. There is mild tricuspid valve regurgitation. No pulmonary hypertension, estimated pulmonary arterial systolic pressure is 17 mmHg. Pericardium/Pleural The pericardium appears normal. There is no pericardial effusion. Inferior Vena Cava Normal inferior vena cava with >50% collapse upon inspiration consistent with normal right atrial pressure, 5 mmHg. Aorta The aortic root size at the sinus of Valsalva is normal. The prox ascending aorta size is normal. Left Ventricular Outflow Tract Name Value Normal LVOT 2D LVOT Diameter 2.0 cm LVOT Doppler LVOT Peak Gradient 5 mmHg LVOT Mean Gradient 3 mmHg LVOT VTI 27 cm LVOT VTI/AV VTI Ratio 0.8 LVOT Stroke Volume 81 ml LVOT CO 14.5 l/min LVOT CI 7
--- NOTE | ~2021-08-03 | US_ITS ---
EXAMINATION: US renal BI DATE: 08/03/2021 09:33 INDICATION: Elevated creatinine TECHNIQUE: Multiple grayscale and Doppler ultrasound images of the kidneys were obtained. COMPARISON: 02/19/2021 FINDINGS: The right kidney measures 7.8 x 3.2 x 3.1 cm. The left kidney measures 9.3 x 4.9 x 4.6 cm. The right kidney demonstrates increased parenchymal echogenicity. The left kidney demonstrates normal parenchymal echogenicity.. There is no hydronephrosis. The bladder is incompletely distended but unr emarkable in appearance. IMPRESSION: 1. Severe atrophy of the right kidney. Reviewed, dictated and finalized at location A.
--- NOTE | ~2021-08-03 | US_ITS ---
EXAMINATION: US venous doppler [facility] DATE: 08/04/2021 12:41 INDICATION: Lower limb edema. TECHNIQUE: Grayscale ultrasound images without and with compression and Doppler ultrasound images of the bilateral lower extremity veins were obtained. COMPARISON: None. FINDINGS: The visualized portions of right common femoral vein, profunda (deep) femoral vein, femoral vein, pop liteal vein, peroneal veins, posterior tibial veins, and greater saphenous vein outflow are patent. The visualized portions of left common femoral vein, profunda femoral vein, femoral vein, popliteal v ein, peroneal veins, posterior tibial veins, and greater saphenous vein outflow are patent. IMPRESSION: 1. No deep venous thrombosis. Reviewed, dictated and finalized at location A.
--- NOTE | ~2021-08-03 | XR_ITS ---
EXAMINATION: XR chest 1V portable DATE: 08/03/2021 03:44 INDICATION: Dyspnea. Congestive heart failure. TECHNIQUE: frontal view of the chest was obtained. COMPARISON: Chest radiograph dated 02/18/2021 FINDINGS: Mild streaky bibasilar atelectasis. No pulmonary edema, pleural effusion or pneumothorax. The cardiom ediastinal silhouette is normal. Old bilateral rib fractures. IMPRESSION: 1. Mild bibasilar atelectasis. Reviewed, dictated and finalized at location A.
--- NOTE | ~2021-08-03 | CT_ITS ---
EXAMINATION: CT abdomen pelvis wo con DATE: 08/03/2021 04:13 INDICATION: Abdominal distention, back pain. Nephrolithiasis. TECHNIQUE: Computed tomography (CT) of the abdomen and pelvis was performed without intravenous contr ast. Automated exposure control and iterative reconstruction technique were employed. The dose-length product was 1007.03 mGy-cm. COMPARISON: 02/18/2021 FINDINGS: Again seen is irregular peripheral septal line thickening in the bilateral lower lungs which could re present atelectasis, minimal pulmonary edema or more chronic interstitial lung disease. Heart size is normal. Dense mitral annular calcification. Atherosclerotic coronary artery calcific location. No pe ricardial or pleural effusion. Gallbladder is again not visualized and likely surgically absent. Liver, spleen, pancreas, left kidne y and bilateral adrenal glands are normal. Severe atrophy of the right kidney with unchanged 1-2 mm s tone at the upper pole. Also unchanged is a 2-3 mm stone in the proximal right ureter but with no hyd ronephrosis. 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 No left-sided urolithiasis. Right renal artery stent. Mild wall thickening in the proximal to mid colon where there is also a large amount of stool. There are a few diverticula at the sigmoid colon without adjacent inflammatory change to suggest diverticul itis. Small bowel is unremarkable with no dilation to suggest obstruction. The appendix is not visual ized. No pericecal inflammatory change to suggest acute appendicitis. Bladder is normal. The uterus i s not identified and has likely been surgically resected. No free intraperitoneal gas or fluid. No pa thologically enlarged abdominal or pelvic lymphadenopathy. L5 laminectomy with mild instrumented ante rior and posterior spinal fusion from L4-S1. Age-indeterminate L1 burst fracture, new since 02/18/2021 with 80% central vertebral body height loss and 6 mm retropulsion resulting in mild to moderate cent ral canal stenosis. IMPRESSION: 1. Colitis in the proximal to mid colon which could be infectious, inflammatory or ischemic in etiolo gy. 2. Unchanged right-sided urolithiasis without hydronephrosis which may be related to the severe right renal atrophy. 3. Age-indeterminate L1 burst fracture with retropulsion resulting in mild to moderate central canal stenosis. This is new since 02/18/2021. Reviewed, dictated and finalized at location A. IMPRESSION: 1. Colitis in the proximal to mid colon which could be infectious, inflammatory or ischemic in etiology. 2. Unchanged right-sided urolithiasis without hydronephrosis which may be relat ed to the severe right renal atrophy. 3. Age-indeterminate L1 burst fracture with retropulsion resulting in mild to m oderate central canal stenosis. This is new since 02/18/2021.
[2021-08-03 04:51] LABS: Basophils Absolute Auto 0.1 K/mm3 (0.0-0.1); Basophils Percent Auto 0.5 % (0.2-1.2); Eosinophils Absolute Auto 0.2 K/mm3 (0-0.3); Hematocrit 45.8 % (37.0-47.0); Immature Granulocyte Absolute 0.11 K/mm3 (0.00-0.031); Immature Granulocyte Percent A 0.7 % (0-0.5); Lymphocytes Absolute Auto 2.08 K/mm3 (0.9-3.2); Lymphocytes Percent Auto 13.4 % (18.3-44.2); Mean Corpuscular HGB Conc 30.6 g/dl (32-36); Mean Corpuscular Hemoglobin 32.7 pg (26-34); Mean Platelet Volume 10.1 fl (7.4-10.4); Monocytes Absolute Auto 1.4 K/mm3 (0.1-0.6); Monocytes Percent Auto 9.3 % (2.6-8.5); Neutrophils Absolute Auto 11.7 K/mm3 (1.3-6.7); Neutrophils Percent Auto 75.1 % (45.5-73.1); Platelet Count Result 235 k/mm3 (150-375); Red Blood Count 4.28 M/mm3 (4.2-5.4); Red Cell Distribution Width 15.7 % (11.5-14.5); White Blood Count 15.5 K/mm3 (4.5-10.0)
[2021-08-03 04:59] LABS: Alanine Aminotransferase 14 U/L (6-35); Albumin Level 3.9 g/dL (3.5-5.1); Alkaline Phosphatase 78 U/L (38-126); Anion Gap 15 mmol/L (8-16); Aspartate Amino Transferase 18 U/L (14-36); Bilirubin,Total 0.5 mg/dL (0.2-1.3); Blood Urea Nitrogen 70 mg/dL (7-17); Calcium 9.2 mg/dL (8.4-10.2); Carbon Dioxide 20 mmol/L (22-30); Chloride 99 mmol/L (98-107); Estimated CRCL calculation 11 ml/min; Estimated Glomerular Filt Rate 9; Glucose 95 mg/dL (65-110); Potassium 4.4 mmol/L (3.4-5.0); Sodium 134 mmol/L (137-145)
[2021-08-03 05:08] LABS: NT Pro B Type Natriuretic Pept 224 pg/mL (5-100)
--- NOTE | 2021-08-03 05:54 | ED.GENADULT ---
HPI - General Adult General Chief complaint: Unspecified Stated complaint: edema legs , decreased urination Time Seen by Provider: 08/03/21 02:37 History of Present Illness HPI narrative: 66-year-old female with history of CKD states that for the past day, she has not been able to make any urine, she also feels like there is fluid building up in her legs and swelling. No fevers or chills, no flank pain, she states that she has chronic back pain. No new or worsening saddle anesthesia, she states she always some numbness of her legs and that is when she walks with a cane Related Data Home Medications Medication Instructions Recorded Confirmed acetaminophen-codeine 1 tablet PO Q6-12H 09/14/19 07/17/21 albuterol sulfate 1 - 2 puff INHALATION Q4-6H PRN 09/14/19 07/17/21 bupropion HCl 300 mg PO DAILY 09/14/19 07/17/21 carvedilol 12.5 mg PO BID 09/14/19 07/17/21 cetirizine 10 mg PO DAILY 09/14/19 07/17/21 conjugated estrogens [Premarin] 0.3 mg PO DAILY 09/14/19 07/17/21 furosemide 40 mg PO DAILY 09/14/19 07/17/21 gabapentin 100 mg PO DAILY 09/14/19 07/17/21 hydrocodone-acetaminophen 1 tablet PO Q4-6H PRN 09/14/19 07/17/21 albuterol 90 mcg INHALATION PRN PRN 02/18/21 07/17/21 bumetanide 1 mg PO DAILY 02/18/21 07/17/21 doxepin 100 mg PO HS 02/18/21 07/17/21 isosorbide mononitrate 30 mg PO DAILY 02/18/21 07/17/21 pramipexole 1.5 mg PO HS 02/18/21 07/17/21 spironolactone 50 mg PO DAILY 02/18/21 07/17/21 tizanidine 8 mg PO HS PRN 02/18/21 07/17/21 hydrochlorothiazide 25 mg PO DAILY 02/19/21 07/17/21 zonisamide 100 mg PO TID 02/19/21 07/17/21 Allergies Allergy/AdvReac Type Severity Reaction Status Date / Time aspirin Allergy Dyspnea / Verified 05/25/21 11:53 SOB Sulfa (Sulfonamide Allergy Hives Verified 05/25/21 11:53 Antibiotics) sumatriptan Allergy Hives Verified 05/25/21 11:53 SUMATRIPTAN SUCCINATE Allergy Hives Uncoded 05/25/21 11:53 Review of Systems Review of Systems: CONST: No fever. HEENT: No sore throat C/V: No chest pain RESP: No difficulty breathing GI: No abdominal pain, nausea or vomiting : Anuria M/S: Lower extremity swelling SKIN: No rash. NEURO: Chronic numbness/weakness in lower extremities PSYCH: [No depression] [facility] Past Medical History Medical History Allergic rhinitis Chronic kidney disease Chronic lower back pain Depression Frequent headaches GERD (gastroesophageal reflux disease) Heart failure Hypertension Restless leg syndrome Surgical History Surgical History History of hysterectomy History of ventral hernia repair X5 complicated by MRSA infection requiring debridement Status post cataract extraction of both eyes with insertion of intraocular lens Family History Family History Mother Lung cancer Father Healthy adult Alive and well at age greater than 90 Social History Social History Smoking packs per day: 0.5 Smoking cigarettes per day: 10.0 Years smoked: 50 Smoking pack-years: 25.00 Smoking status: Current every day smoker Alcohol intake: never Substance use: never Spiritual care concerns: No Exam Narrative: EXAMINATION OF ORGAN SYSTEMS/BODY AREAS: Constitutional: Vital signs per nursing GENERAL:[No acute distress, non-toxic appearing.] HEAD: Normal with no signs of head trauma. EYES: EOMI, conjunctiva normal ENT: Hearing grossly intact LUNGS: Nonlabored breathing. HEART: [Regular rate and rhythm] ABD: [Soft], [nontender to palpation], nondistended EXT: No lower extremity edema bilaterally SKIN: [No rashes or lesions.] NEURO: [Alert and oriented x 3. No gross focal sensory or strength deficits.] PSYCH: Normal affect Course Course Emergency Course: 66-year-old female presenting with no urine for the past day, and swelling in both leg
[2021-08-03 06:44] LABS: SARS-CoV-2 RNA PCR Negative
[2021-08-03] MEDS: traMADol HCL (*CRX) 50 MG TABLET PO (06:54)
[2021-08-03 07:01] LABS: Add Urine Microscopic? NO; Appearance Urine Clear (Clear); Bilirubin Urine Negative (Negative); Blood Urine Negative (Negative); Color Urine Yellow (Yellow); Glucose Urine UA Negative (Negative); Ketones Urine Negative (Negative); Leukocyte Esterase Ur Negative LEU/UL (Negative); Nitrate Urine Negative (Negative); Protein Urine Negative (Negative); Specific Grav Ur 1.015 (1.001-1.035); Urobilinogen Urine 0.2 mg/dL (<2.0); pH Urine 5.5 (5.0-9.0)
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
--- NOTE | 2021-08-03 08:42 | PC.NURSE ---
bed status check at [facility] - No beds at this time pt continues on wait list
[2021-08-03 10:26] LABS: Creatine Kinase 36 U/L (30-135)
[2021-08-03] MEDS: SODIUM CHLORIDE 0.9% IV 1,000 ML 100 ML IV CONT (11:49)
[2021-08-03 14:20] LABS: Total Protein Urine Random 12 mg/dL; Ur Ttl Prot Creatinine Ratio 0.17 mg/mg (0-0.20)
[2021-08-03 14:40] LABS: Sodium Urine Random 50 meq/L
--- NOTE | 2021-08-03 16:16 | PM.IMHP ---
H&P: HPI History of Present Illness Date/Time: Patient requires inpatient monitoring with expected length of stay to exceed 2 midnights for management of care. 08/03/21 16:16 Chief Complaint: Anuria Narrative: Ms. Giang is a 58-year-old female who presented emergency room with complaints of anuria. patient states that she noticed on Saturday she had not urinated very much, and on Saturday she had no urine output. Patient states she attempted to try to urinate even though she felt like she did not need to. Patient states she had no urine output on Saturday or Saturday and today decided come emergency room for further evaluation when she noticed some swelling to her lower extremities. Patient has a known history of chronic kidney disease and follows with Nephrology for this. Patient states that she has not been eating very well, but she has been drinking water without any difficulty. Patient states that she noticed edema to her lower extremities starting on Saturday. patient denies any chest pain, shortness a breath, lightheadedness, dizziness, syncopal, or near syncopal episodes. Patient states prior to becoming anuric she did not have any dysuria, hematuria, frequency, or urgency. Upon evaluation in emergency room patient was noted to have a significantly elevated BUN and creatinine above baseline. Patient did have a straight catheterization performed and 300 cc of urine returned. Patient was then started on IV fluids and Nephrology was consulted. Patient has a known history of chronic kidney disease for which she follows with Nephrology. Patient also has a history of chronic back pain, depression, GERD, and restless leg syndrome. Review of Systems Review of Systems: A 12 point review of systems was completed patient all pertinent positive and negative per HPI the remainder are unremarkable. [facility] Past Medical History Medical History Allergic rhinitis Chronic kidney disease Chronic lower back pain Depression Frequent headaches GERD (gastroesophageal reflux disease) Heart failure Hypertension Restless leg syndrome Surgical History Surgical History History of hysterectomy History of ventral hernia repair X5 complicated by MRSA infection requiring debridement Status post cataract extraction of both eyes with insertion of intraocular lens Family History Family History Mother Lung cancer Father Healthy adult Alive and well at age greater than 90 Social History Social History Smoking packs per day: 0.5 Smoking cigarettes per day: 10.0 Years smoked: 50 Smoking pack-years: 25.00 Smoking status: Current every day smoker Tobacco type: cigarettes Alcohol intake: current Drinks per week: 1 Substance use: current Substance use type: painkillers and prescription drug Spiritual care concerns: No Meds Home Medications and Allergies Home Medications Medication Instructions Recorded Confirmed Type acetaminophen-codeine 1 tablet PO Q6-12H 09/14/19 08/03/21 History albuterol sulfate 1 - 2 puff INHALATION Q4-6H PRN 09/14/19 08/03/21 History bupropion HCl 300 mg PO DAILY 09/14/19 08/03/21 History carvedilol 12.5 mg PO BID 09/14/19 08/03/21 History cetirizine 10 mg PO DAILY 09/14/19 08/03/21 History conjugated estrogens [Premarin] 0.3 mg PO DAILY 09/14/19 08/03/21 History furosemide 40 mg PO DAILY 09/14/19 08/03/21 History gabapentin 100 mg PO DAILY 09/14/19 08/03/21 History hydrocodone-acetaminophen 1 tablet PO Q4-6H PRN 09/14/19 08/03/21 History albuterol 90 mcg INHALATION PRN PRN 02/18/21 08/03/21 History bumetanide 1 mg PO BID 02/18/21 08/03/21 History doxepin 25 mg PO HS 02/18/21 08/03/21 History isosorbide mononitrate 30 mg PO DAILY 02/18/21 08/03/21 History pramipexole 1.5 mg PO
[2021-08-03 16:18] LABS: Phosphorus 5.7 mg/dL (2.5-4.5)
[2021-08-03] MEDS: HYDROcodone/acetaminophen (*CRX) 5-325 MG TABLET 1 TAB PO (18:05)
[2021-08-03] MEDS: cilostazoL 50 MG TABLET PO (18:07)
[2021-08-03] MEDS: ZONISAMIDE 100 MG CAPSULE PO (18:08)
[2021-08-03] MEDS: carvediloL 12.5 MG TABLET PO (18:09)
[2021-08-03] MEDS: DOXEPIN HCL 25 MG CAPSULE PO (21:42)
[2021-08-03] MEDS: hydrOXYzine HCL 25 MG TABLET PO (21:43)
[2021-08-03] MEDS: PRAMIPEXOLE 0.5 MG TABLET 1.5 MG PO (21:43)
[2021-08-03] MEDS: HEPARIN SODIUM 5,000 UNITS/ML VIAL 5000 UNITS SUB-Q (21:44)
[2021-08-04] VITALS (7 sets, daily range): BP systolic 107–128; BP diastolic 51–73; PULSE 76–81; RESP 16–20; TEMP 36.7–37.1; O2SAT 94–97
[2021-08-04 06:55] LABS: Basophils Percent Auto 0.3 % (0.2-1.2); Eosinophils Absolute Auto 0.2 K/mm3 (0-0.3); Eosinophils Percent Auto 1.2 % (0-4.4); Hematocrit 40.9 % (37.0-47.0); Hemoglobin 13.3 g/dL (12.0-15.0); Immature Granulocyte Absolute 0.09 K/mm3 (0.00-0.031); Immature Granulocyte Percent A 0.7 % (0-0.5); Lymphocytes Absolute Auto 1.03 K/mm3 (0.9-3.2); Lymphocytes Percent Auto 7.6 % (18.3-44.2); Mean Corpuscular HGB Conc 32.5 g/dl (32-36); Mean Corpuscular Hemoglobin 32.7 pg (26-34); Mean Corpuscular Volume 100.5 fl (80-100); Monocytes Absolute Auto 1.5 K/mm3 (0.1-0.6); Monocytes Percent Auto 11.2 % (2.6-8.5); Neutrophils Absolute Auto 10.7 K/mm3 (1.3-6.7); Platelet Count Result 233 k/mm3 (150-375); Red Blood Count 4.07 M/mm3 (4.2-5.4); White Blood Count 13.5 K/mm3 (4.5-10.0)
[2021-08-04 07:14] LABS: Albumin Level 3.6 g/dL (3.5-5.1); Anion Gap 6 mmol/L (8-16); Blood Urea Nitrogen 71 mg/dL (7-17); Calcium 8.2 mg/dL (8.4-10.2); Carbon Dioxide 28 mmol/L (22-30); Chloride 97 mmol/L (98-107); Estimated CRCL calculation 14 ml/min; Estimated Glomerular Filt Rate 11; Glucose 109 mg/dL (65-110); Magnesium 3.8 mg/dL (1.6-2.3); Phosphorus 5.6 mg/dL (2.5-4.5); Potassium 3.9 mmol/L (3.4-5.0); Sodium 131 mmol/L (137-145)
[2021-08-04] MEDS: HYDROcodone/acetaminophen (*CRX) 5-325 MG TABLET 1 TAB PO ×3 (08:37→21:09)
[2021-08-04] MEDS: cilostazoL 50 MG TABLET PO ×2 (08:38→16:39)
[2021-08-04] MEDS: ZONISAMIDE 100 MG CAPSULE PO ×3 (08:38→16:38)
[2021-08-04] MEDS: buPROPion HCL XL (24 HR) 150 MG TABCR 300 MG PO (08:38)
[2021-08-04] MEDS: PANTOPRAZOLE 40 MG TABLET PO (08:38)
[2021-08-04] MEDS: ASCORBIC ACID 500 MG TABLET 1000 MG PO (08:38)
[2021-08-04] MEDS: predniSONE 10 MG TABLET PO (08:38)
[2021-08-04] MEDS: THERAPEUTIC MULTIVITAMINS/MINERALS TAB (*BKC) 1 TABLET PO (08:38)
[2021-08-04] MEDS: ISOSORBIDE MONONITRATE 30 MG TAB.ER.24H PO (08:38)
[2021-08-04] MEDS: GABAPENTIN 100 MG CAPSULE PO (08:38)
[2021-08-04] MEDS: HEPARIN SODIUM 5,000 UNITS/ML VIAL 5000 UNITS SUB-Q ×2 (08:39→21:12)
[2021-08-04] MEDS: LORATADINE 10 MG TABLET PO (08:39)
[2021-08-04] MEDS: carvediloL 12.5 MG TABLET PO ×2 (08:39→16:39)
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
--- NOTE | 2021-08-04 11:53 | PM.IMPN ---
Progress Note: A&P Assessment and Plan (1) Colitis: Code(s): K52.9 - Noninfective gastroenteritis and colitis, unspecified Status: Acute Assessment and Plan: Does have some abdominal pain and diarrhea. Will go and start treatment for colitis with Unasyn. (2) Hypovolemia: Code(s): E86.1 - Hypovolemia Status: Acute Assessment and Plan: IV fluids per Nephrology (3) Back pain: Code(s): M54.9 - Dorsalgia, unspecified Status: Acute Assessment and Plan: Continue home medications and [place] (4) Hypertension: Code(s): I10 - Essential (primary) hypertension Status: Acute Assessment and Plan: Monitor blood pressure (5) Depression: Code(s): F32.9 - Major depressive disorder, single episode, unspecified Status: Acute Assessment and Plan: Monitor (6) Heart failure: Code(s): I50.9 - Heart failure, unspecified Status: Acute Assessment and Plan: Appears compensated. Monitor continue home meds. (7) Acute kidney injury superimposed on chronic kidney disease: Code(s): N17.9 - Acute kidney failure, unspecified; N18.9 - Chronic kidney disease, unspecified Status: Acute Assessment and Plan: This is the main issue for her admission. Creatinine is elevated from baseline. Nephrology has seen the patient start the patient on IV fluids. Subjective Date/time seen: 08/04/21 11:53 Patient is having a little bit of abdominal pain on the middle and left side of her abdomen. She reports a couple loose stools yesterday evening. No blood. Otherwise she is little sleepy today but does not have any complaints of chest pain. Objective Data Vital Signs Vital Signs: Vital Signs - 24 hr 08/03/21 14:00 08/03/21 18:09 08/03/21 21:52 Temperature 97.2 F L 98.0 F Pulse Rate 66 66 70 Respiratory Rate 20 18 Blood Pressure 120/51 L 108/89 Pulse Oximetry 97 97 08/04/21 05:29 08/04/21 05:50 08/04/21 08:39 Temperature 98.0 F Pulse Rate 81 76 Respiratory Rate 20 Blood Pressure 128/56 L Pulse Oximetry 96 97 Intake/Output Intake/Output: Intake & Output 08/01/21 08/02/21 08/03/21 08/04/21 23:59 23:59 23:59 23:59 Intake Total 900 100 Output Total 700 Balance 200 100 Meds/Results Medications: Active Medications Generic Name Dose Route Start Last Admin Trade Name Freq PRN Reason Stop Dose Admin Hydrocodone Bitart/Acetaminophen 1 tab 08/03/21 16:05 08/04/21 08:37 Hydrocodone/Acetaminophen (*Crx) 5-325 Mg Tablet PO 1 tab Q4H PRN Administration Breakthrough Pain, Moderate Albuterol 2 puff 08/03/21 16:05 Albuterol Sulfate (*Sp) Aerosol 1 Puff INHALATION Q4HRT PRN Dyspnea Ascorbic Acid 1,000 mg 08/04/21 09:00 08/04/21 08:38 Ascorbic Acid 500 Mg Tablet PO 1,000 mg DAILY SRIRAM Administration Bupropion HCl 300 mg 08/04/21 09:00 08/04/21 08:38 Bupropion Hcl Xl (24 Hr) 150 Mg Tabcr PO 300 mg DAILY SRIRAM Administration Carvedilol 12.5 mg 08/03/21 17:00 08/04/21 08:39 Carvedilol 12.5 Mg Tablet PO 12.5 mg BID SRIRAM Administration Cilostazol 50 mg 08/03/21 17:00 08/04/21 08:38 Cilostazol 50 Mg Tablet PO 50 mg BID SRIRAM Administration Doxepin HCl 25 mg 08/03/21 21:00 08/03/21 21:42 Doxepin Hcl 25 Mg Capsule PO 25 mg HS SRIRAM Administration Estrogens Conjugated 0.3 mg 08/04/21 09:00 Estrogens, Conjugated 0.3 Mg Tablet PO DAILY SRIRAM Gabapentin 100 mg 08/04/21 09:00 08/04/21 08:38 Gabapentin 100 Mg Capsule PO 100 mg DAILY SRIRAM Administration Heparin Sodium (Porcine) 5,000 units 08/03/21 21:00 08/04/21 08:39 Heparin Sodium 5,000 Units/Ml Vial SUB-Q 5,000 units Q12HR SRIRAM Administration Hydroxyzine HCl 25 mg 08/03/21 16:05 08/03/21 21:43 Hydroxyzine Hcl 25 Mg Tablet PO 25 mg BID PRN Administration Anxiety Sodium Chloride 1,000 mls @ 100 mls/hr 08/03/21 08:30
[2021-08-04] MEDS: AMPICILLIN SULB 1.5 GM/NS 50ML 1.5 GM/50 ML VIAL IVPB (13:07)
[2021-08-04] MEDS: ESTROGENS, CONJUGATED 0.3 MG TABLET PO (13:08)
[2021-08-04] MEDS: hydrOXYzine HCL 25 MG TABLET PO (13:41)
[2021-08-04] MEDS: DOXEPIN HCL 25 MG CAPSULE PO (21:13)
[2021-08-04] MEDS: PRAMIPEXOLE 0.5 MG TABLET 1.5 MG PO (21:15)
[2021-08-05] VITALS (7 sets, daily range): BP systolic 98–147; BP diastolic 52–73; PULSE 76–82; RESP 16–20; TEMP 36.6–37; O2SAT 95–98
[2021-08-05] MEDS: AMPICILLIN SULB 1.5 GM/NS 50ML 1.5 GM/50 ML VIAL IVPB ×2 (01:18→12:18)
[2021-08-05] MEDS: HYDROcodone/acetaminophen (*CRX) 5-325 MG TABLET 1 TAB PO ×3 (05:26→16:22)
[2021-08-05 06:51] LABS: Albumin Level 3.5 g/dL (3.5-5.1); Anion Gap 11 mmol/L (8-16); Blood Urea Nitrogen 55 mg/dL (7-17); Calcium 8.2 mg/dL (8.4-10.2); Carbon Dioxide 21 mmol/L (22-30); Chloride 103 mmol/L (98-107); Estimated CRCL calculation 22 ml/min; Estimated Glomerular Filt Rate 20; Glucose 91 mg/dL (65-110); Phosphorus 3.7 mg/dL (2.5-4.5); Potassium 3.5 mmol/L (3.4-5.0); Sodium 135 mmol/L (137-145)
[2021-08-05] MEDS: SODIUM CHLORIDE 0.9% IV 1,000 ML 100 ML IV CONT ×2 (08:38→19:51)
[2021-08-05] MEDS: ISOSORBIDE MONONITRATE 30 MG TAB.ER.24H PO (08:39)
[2021-08-05] MEDS: predniSONE 10 MG TABLET PO (08:39)
[2021-08-05] MEDS: PANTOPRAZOLE 40 MG TABLET PO (08:39)
[2021-08-05] MEDS: cilostazoL 50 MG TABLET PO ×2 (08:39→16:21)
[2021-08-05] MEDS: carvediloL 12.5 MG TABLET PO ×2 (08:39→16:21)
[2021-08-05] MEDS: ESTROGENS, CONJUGATED 0.3 MG TABLET PO (08:39)
[2021-08-05] MEDS: THERAPEUTIC MULTIVITAMINS/MINERALS TAB (*BKC) 1 TABLET PO (08:39)
[2021-08-05] MEDS: buPROPion HCL XL (24 HR) 150 MG TABCR 300 MG PO (08:39)
[2021-08-05] MEDS: LORATADINE 10 MG TABLET PO (08:39)
[2021-08-05] MEDS: HEPARIN SODIUM 5,000 UNITS/ML VIAL 5000 UNITS SUB-Q ×2 (08:39→19:49)
[2021-08-05] MEDS: ASCORBIC ACID 500 MG TABLET 1000 MG PO (08:39)
[2021-08-05] MEDS: ZONISAMIDE 100 MG CAPSULE PO ×3 (08:39→16:22)
[2021-08-05] MEDS: GABAPENTIN 100 MG CAPSULE PO (08:40)
[2021-08-05] MEDS: hydrOXYzine HCL 25 MG TABLET PO ×3 (08:45→19:53)
--- NOTE | 2021-08-05 09:58 | PM.IMPN ---
Progress Note: A&P Assessment and Plan (1) Colitis: Code(s): K52.9 - Noninfective gastroenteritis and colitis, unspecified Status: Acute Assessment and Plan: Does have some abdominal pain and diarrhea. Will go and start treatment for colitis with Unasyn. (2) Hypovolemia: Code(s): E86.1 - Hypovolemia Status: Acute Assessment and Plan: IV fluids per Nephrology (3) Back pain: Code(s): M54.9 - Dorsalgia, unspecified Status: Acute Assessment and Plan: Continue home medications and [place] (4) Hypertension: Code(s): I10 - Essential (primary) hypertension Status: Acute Assessment and Plan: Monitor blood pressure (5) Depression: Code(s): F32.9 - Major depressive disorder, single episode, unspecified Status: Acute Assessment and Plan: Monitor (6) Heart failure: Code(s): I50.9 - Heart failure, unspecified Status: Acute Assessment and Plan: Echo normal (7) Acute kidney injury superimposed on chronic kidney disease: Code(s): N17.9 - Acute kidney failure, unspecified; N18.9 - Chronic kidney disease, unspecified Status: Acute Assessment and Plan: Kidney functions improving. Likely secondary dehydration. Continue IV fluids monitor electrolytes and kidney function appreciate Nephrology consult Subjective Date/time seen: 08/05/21 09:58 Kidney function improving Exam Narrative: Constitutional: Patient is well-nourished in no acute distress. Patient is alert and oriented x3 HEENT: Moist mucous membranes. No scleral icterus. No lymphadenopathy. Neck: No carotid bruits noted no JVD noted Lungs: Lung sounds are clear to auscultation bilaterally. No accessory muscle use. No rhonchi, rales, or wheezes noted. Cardiovascular: Apical pulse is regular rate and rhythm. S1-S2 noted, no S3 or S4 noted. No gallops, murmurs, or rubs noted. Abdomen: Soft, round, and nontender. No palpable masses. Extremities: trace edema. Nontender. Skin: No rashes or lesions. Warm and dry. Skin is intact. Neurological: No focal neurological deficits. Cranial nerves II-XII grossly intact. Psychiatric: Cooperative, appropriate mood, and affect Objective Data Vital Signs Vital Signs: Vital Signs - 24 hr 08/04/21 14:00 08/04/21 16:39 08/04/21 20:15 Temperature 98.2 F Pulse Rate 81 78 79 Respiratory Rate 18 16 Blood Pressure 107/73 Pulse Oximetry 94 96 08/04/21 22:00 08/05/21 05:48 08/05/21 08:28 Temperature 98.8 F 97.8 F Pulse Rate 79 78 Respiratory Rate 16 16 Blood Pressure 113/51 L 98/58 L Pulse Oximetry 96 95 96 08/05/21 08:39 Temperature Pulse Rate 76 Respiratory Rate Blood Pressure Pulse Oximetry Intake/Output Intake/Output: Intake & Output 08/02/21 08/03/21 08/04/21 08/05/21 23:59 23:59 23:59 23:59 Intake Total 1900 790 500 Output Total 700 Balance 1200 790 500 Meds/Results Medications: Active Medications Generic Name Dose Route Start Last Admin Trade Name Freq PRN Reason Stop Dose Admin Hydrocodone Bitart/Acetaminophen 1 tab 08/03/21 16:05 08/05/21 05:26 Hydrocodone/Acetaminophen (*Crx) 5-325 Mg Tablet PO 1 tab Q4H PRN Administration Breakthrough Pain, Moderate Albuterol 2 puff 08/03/21 16:05 Albuterol Sulfate (*Sp) Aerosol 1 Puff INHALATION Q4HRT PRN Dyspnea Ascorbic Acid 1,000 mg 08/04/21 09:00 08/05/21 08:39 Ascorbic Acid 500 Mg Tablet PO 1,000 mg DAILY SRIRAM Administration Benzocaine 1 lozenge 08/05/21 05:53 Benzocaine/Menthol (*Bkc) 18 Ea Lozenge PO PRN PRN Sore Throat Bupropion HCl 300 mg 08/04/21 09:00 08/05/21 08:39 Bupropion Hcl Xl (24 Hr) 150 Mg Tabcr PO 300 mg DAILY SRIRAM Administration Carvedilol 12.5 mg 08/03/21 17:00 08/05/21 08:39 Carvedilol 12.5 Mg Tablet PO 12.5 mg BID SRIRAM Administration Cilostazol 50 mg 08/03/21 17:00 08/05/21 08:39 [place]
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
[2021-08-05] MEDS: PRAMIPEXOLE 0.5 MG TABLET 1.5 MG PO (19:49)
[2021-08-05] MEDS: DOXEPIN HCL 25 MG CAPSULE PO (19:52)
[2021-08-06] MEDS: AMPICILLIN SULB 1.5 GM/NS 50ML 1.5 GM/50 ML VIAL IVPB ×2 (00:35→11:25)
[2021-08-06 05:48] VITALS: BP 151/66; PULSE 76; RESP 16; TEMP 36.4; O2SAT 100
[2021-08-06] MEDS: HYDROcodone/acetaminophen (*CRX) 5-325 MG TABLET 1 TAB PO (06:05)
[2021-08-06 08:01] LABS: Albumin Level 3.7 g/dL (3.5-5.1); Anion Gap 4 mmol/L (8-16); Blood Urea Nitrogen 32 mg/dL (7-17); Calcium 8.4 mg/dL (8.4-10.2); Carbon Dioxide 26 mmol/L (22-30); Chloride 105 mmol/L (98-107); Estimated CRCL calculation 30 ml/min; Estimated Glomerular Filt Rate 28; Glucose 95 mg/dL (65-110); Phosphorus 2.4 mg/dL (2.5-4.5); Potassium 3.8 mmol/L (3.4-5.0); Sodium 135 mmol/L (137-145)
[2021-08-06 08:50] VITALS: PULSE 70
[2021-08-06] MEDS: THERAPEUTIC MULTIVITAMINS/MINERALS TAB (*BKC) 1 TABLET PO (08:50)
[2021-08-06] MEDS: POTASSIUM/PHOSPHORUS/SODIUM 1.5 GM PACKET 1 PACKET PO (08:50)
[2021-08-06] MEDS: buPROPion HCL XL (24 HR) 150 MG TABCR 300 MG PO (08:50)
[2021-08-06] MEDS: carvediloL 12.5 MG TABLET PO (08:50)
[2021-08-06] MEDS: cilostazoL 50 MG TABLET PO (08:50)
[2021-08-06] MEDS: ISOSORBIDE MONONITRATE 30 MG TAB.ER.24H PO (08:51)
[2021-08-06] MEDS: ZONISAMIDE 100 MG CAPSULE PO ×2 (08:51→11:25)
[2021-08-06] MEDS: ESTROGENS, CONJUGATED 0.3 MG TABLET PO (08:51)
[2021-08-06] MEDS: ASCORBIC ACID 500 MG TABLET 1000 MG PO (08:51)
[2021-08-06] MEDS: predniSONE 10 MG TABLET PO (08:51)
[2021-08-06] MEDS: PANTOPRAZOLE 40 MG TABLET PO (08:51)
[2021-08-06] MEDS: LORATADINE 10 MG TABLET PO (08:51)
[2021-08-06] MEDS: HEPARIN SODIUM 5,000 UNITS/ML VIAL 5000 UNITS SUB-Q (08:51)
--- NOTE | 2021-08-06 11:25 | PM.DS ---
DS: Admitting Diagnosis Discharge Date August 06, 2021 Admitting Diagnosis Acute renal failure dehydration colitis DS: Discharge Diagnosis Discharge Diagnosis (1) Colitis: Code(s): K52.9 - Noninfective gastroenteritis and colitis, unspecified Status: Acute Assessment and Plan: Oral Augmentin on discharge (2) Hypovolemia: Code(s): E86.1 - Hypovolemia Status: Acute Assessment and Plan: Resolved after IV fluids. Patient is tolerating p.o.. Decreased her diuretic therapy on discharge (3) Back pain: Code(s): M54.9 - Dorsalgia, unspecified Status: Acute Assessment and Plan: Continue home medications and [place] (4) Hypertension: Code(s): I10 - Essential (primary) hypertension Status: Acute Assessment and Plan: Monitor blood pressure (5) Depression: Code(s): F32.9 - Major depressive disorder, single episode, unspecified Status: Acute Assessment and Plan: Monitor (6) Heart failure: Code(s): I50.9 - Heart failure, unspecified Status: Acute Assessment and Plan: Echo normal. No heart failure (7) Acute kidney injury superimposed on chronic kidney disease: Code(s): N17.9 - Acute kidney failure, unspecified; N18.9 - Chronic kidney disease, unspecified Status: Acute Assessment and Plan: Secondary dehydration from colitis. This has subsequently improved. Patient be on oral antibiotics on discharge. Creatinine is now baseline at 1.8. She will need a follow-up with Nephrology. I have stopped her furosemide and will hold her Bumex for 1 week. She needs to follow up with the primary care physician and her manager stylist on discharge. DS: Summary Hospital Course Hospital Course: Patient was admitted for colitis dehydration and volume depletion with elevated creatinine. She was given IV fluids adjusted her medications and her creatinine improved. Oral antibiotics for 5 more days Time Spent with Patient Time attestation: Total time spent providing and/or coordinating discharge services: Exam Narrative: Constitutional: Patient is well-nourished in no acute distress. Patient is alert and oriented x3 HEENT: Moist mucous membranes. No scleral icterus. No lymphadenopathy. Neck: No carotid bruits noted no JVD noted Lungs: Lung sounds are clear to auscultation bilaterally. No accessory muscle use. No rhonchi, rales, or wheezes noted. Cardiovascular: Apical pulse is regular rate and rhythm. S1-S2 noted, no S3 or S4 noted. No gallops, murmurs, or rubs noted. Abdomen: Soft, round, and nontender. No palpable masses. Extremities: trace edema. Nontender. Skin: No rashes or lesions. Warm and dry. Skin is intact. Neurological: No focal neurological deficits. Cranial nerves II-XII grossly intact. Psychiatric: Cooperative, appropriate mood, and affect DS: Data Data Completed and Pending Labs on day of discharge: Labs from last 24 hours 08/06/21 07:28 Sodium 135 L Potassium 3.8 Chloride 105 Carbon Dioxide 26 Anion Gap 4 L BUN 32 H D Creatinine 1.80 H Estim Creat Clear Calc 30 Estimated GFR 28 L Glucose 95 Calcium 8.4 Phosphorus 2.4 L Albumin 3.7 Discharge Plan Discharge Attending physician on discharge: Raul Swain Consulting providers: Kuldeep Gates ; Discharging Clinician: Raul Swain Patient Disposition: Home, Self-Care Activity: no preference Diet: as tolerated Patient Instructions: Antibiotic Form Stand Alone Forms: General Discharge Information Follow-up/Referrals: Kuldeep Gates MD [Physician] - Discharge Medications: New amoxicillin-pot clavulanate 875-125 mg tablet 1 tablet PO Q12H 5 Days Qty: 10 RF: 0 Continued carvedilol 12.5 mg tablet 12.5 mg PO BID RF: 0 cetirizine 10 mg tablet 10 mg PO DAILY RF: 0 hydrocodone-acetaminophen 5-325 mg tablet 1 tablet PO Q4-6H PRN (Reason:
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
== END 2021-08-06 15:00 | disposition home or self-care (01) | DRG 683 ==
LOC: ANHED 07:35 → ANH3MEDSUR 08:08
PROVIDERS: Internal Medicine Nephrology; Nurse Practitioner Adult Health; Admitting Provider Chiropractor; Emergency Provider Emergency Medicine; Visit Provider Chiropractor
DX: N17.9 Acute kidney failure, unspecified (principal); E87.1 Hypo-osmolality and hyponatremia; I12.0 Hypertensive chronic kidney disease with stage 5 chronic kidney disease or end stage renal disease; R34 Anuria and oliguria; N18.5 Chronic kidney disease, stage 5; Z20.822 Contact with and (suspected) exposure to COVID-19; F32.9 Major depressive disorder, single episode, unspecified; K21.9 Gastro-esophageal reflux disease without esophagitis; G25.81 Restless legs syndrome; F17.210 Nicotine dependence, cigarettes, uncomplicated; Z86.14 Personal history of Methicillin resistant Staphylococcus aureus infection; E86.0 Dehydration; E86.1 Hypovolemia; M54.9 Dorsalgia, unspecified; K52.9 Noninfective gastroenteritis and colitis, unspecified; Z79.52 Long term (current) use of systemic steroids; Z79.899 Other long term (current) drug therapy
CPT/HCPCS: 36415; 51701; 71045; 74176; 76775; 80053; 80069; 81003; 82550; 82570; 83735; 83880; 84100; 84156; 84300; 85025; 93306; 93970; 99285; A9270; C9803; J0295; J1644; J7030; J7512; U0003; U0005

== ENCOUNTER 2022-10-22 17:23 | Observation (INO) | payer MEDICARE, MEDICAID, SELFPAY ==
[2022-10-22] VITALS (13 sets, daily range): BP systolic 129–161; BP diastolic 55–74; PULSE 70–81; RESP 16–22; TEMP 36.4–36.8; O2SAT 65–100
--- NOTE | ~2022-10-22 | CT_ITS ---
EXAMINATION: CT abdomen pelvis wo con DATE: 10/22/2022 22:21 INDICATION: acute kidney injury TECHNIQUE: Computed tomography (CT) of the abdomen and pelvis was performed without intravenous contr ast. Automated exposure control and iterative reconstruction technique were employed. The dose-length product was 726.19 mGy-cm. COMPARISON: 08/03/2021. FINDINGS: Lower thorax: UIP pattern of interstitial change in the lung bases. Aortic valve and mitral calcifica tions. Mild coronary artery calcifications. Liver: Normal. Biliary/Gallbladder: Gallbladder is absent. No bile duct dilation. Pancreas: Mild fatty atrophy. Spleen: Normal. Adrenals:No mass. Kidneys: Left cortical scarring. Stable peripheral left upper pole calcification. Nonobstructing righ t upper pole calcification. Simple right midpole cyst. Severe right atrophy. Unchanged 3 mm stone in the proximal right ureter. GI tract: No small or large bowel dilation. Appendix is not confidently visualized. Moderate divertic ulosis. Increased short segment wall thickening with mild chronic inflammatory change in the mid sigm oid colon, located in the deep pelvis. Mesentery/Peritoneum: No ascites, mass, or free air. Retroperitoneum: No mass. Atherosclerotic abdominal aortic and/or arterial calcifications.. Mild fusi form ectasia of the infrarenal abdominal aorta up to 2.3 cm, no follow-up required. Right renal arter y ostial stent. Pelvis: The uterus is absent. Normal bilateral ovaries. The urinary bladder is decompressed. Stable s omewhat linear calcification within or immediately adjacent to the distal right ureter. Soft Tissues: Soft tissues and body wall unremarkable. Bones: No acute osseous finding. Uncomplicated appearing lower lumbar fusion hardware. Unchanged L1 burst fracture. IMPRESSION: Mild mid sigmoid diverticulitis. Chronic and incidental findings detailed above. Reviewed, dictated and finalized at location K.
--- NOTE | ~2022-10-22 | XR_ITS ---
EXAMINATION: XR chest 2V Exam Date/Time: 10/22/2022 19:47 CDT HISTORY: shortness of breath; CHF, HTN, smoker Comparison: 08/03/2021; CT abdomen pelvis 08/03/2021. RESULT: Lines, tubes, and devices: None. Lungs and pleura: Bilateral peripheral reticular and reticulonodular opacities. No focal consolidati on. Cardiomediastinal silhouette: Stable. Other: No acute osseous or upper abdominal finding. IMPRESSION: Pulmonary opacities may represent bronchiolitis, as can be seen with atypical infection, asthma, aspi ration, and small airways disease, possibly overlying chronic interstitial lung changes. Reviewed, dictated and finalized at location K. IMPRESSION: Pulmonary opacities may represent bronchiolitis, as can be seen with atypical i nfection, asthma, aspiration, and small airways disease, possibly overlying chr onic interstitial lung changes.
[2022-10-22 17:41] LABS: Basophils Absolute Auto 0.1 K/mm3 (0.0-0.1); Basophils Percent Auto 0.4 % (0.2-1.2); Eosinophils Absolute Auto 0.1 K/mm3 (0-0.3); Eosinophils Percent Auto 0.6 % (0-4.4); Hematocrit 33.9 % (37.0-47.0); Immature Granulocyte Absolute 0.07 K/mm3 (0.00-0.031); Immature Granulocyte Percent A 0.4 % (0-0.5); Lymphocytes Absolute Auto 2.59 K/mm3 (0.9-3.2); Lymphocytes Percent Auto 16.2 % (18.3-44.2); Mean Corpuscular HGB Conc 29.5 g/dl (32-36); Mean Corpuscular Hemoglobin 23.7 pg (26-34); Mean Corpuscular Volume 80.3 fl (80-100); Mean Platelet Volume 10.3 fl (7.4-10.4); Monocytes Absolute Auto 1.3 K/mm3 (0.1-0.6); Neutrophils Absolute Auto 11.9 K/mm3 (1.3-6.7); Neutrophils Percent Auto 74.4 % (45.5-73.1); Platelet Count Result 522 k/mm3 (150-375); Red Blood Count 4.22 M/mm3 (4.2-5.4); Red Cell Distribution Width 18.3 % (11.5-14.5)
[2022-10-22 17:52] LABS: INR 0.9; Partial Thromboplastin Time 28.6 SECONDS (22.3-36.8); Prothrombin Time 12.8 Seconds (11.1-14.7)
[2022-10-22 17:55] LABS: Alanine Aminotransferase 14 U/L (6-35); Albumin Level 4.2 g/dL (3.5-5.1); Alkaline Phosphatase 95 U/L (38-126); Anion Gap 9 mmol/L (8-16); Aspartate Amino Transferase 19 U/L (14-36); Bilirubin,Total 0.4 mg/dL (0.2-1.3); Blood Urea Nitrogen 34 mg/dL (7-17); Calcium 9.2 mg/dL (8.4-10.2); Carbon Dioxide 25 mmol/L (22-30); Chloride 97 mmol/L (98-107); Estimated CRCL calculation 15 ml/min; Estimated Glomerular Filt Rate 14; Glucose 114 mg/dL (65-110); Potassium 3.4 mmol/L (3.4-5.0); Sodium 131 mmol/L (137-145)
[2022-10-22 18:04] LABS: Platelet Estimate Increased (Adequate)
[2022-10-22 18:05] LABS: Anisocytosis 3+ (NORMAL); Hypochromasia 1+ (NORMAL); Schistocytes None Seen (NORMAL)
[2022-10-22 18:34] LABS: Appearance Urine Clear (Clear); Bacteria Urine None Seen /hpf; Bilirubin Urine Negative (Negative); Blood Urine Negative (Negative); Color Urine Yellow (Yellow); Glucose Urine UA Negative (Negative); Ketones Urine Negative (Negative); Leukocyte Esterase Ur Trace LEU/UL (Negative); Nitrate Urine Negative (Negative); Non Pathogenic Casts 0-2; Protein Urine Negative (Negative); RBC Urine 0-2 /hpf (0-2); Specific Grav Ur 1.005 (1.001-1.035); Squamous Epithelial Cell Urine None seen /hpf (Few); Urobilinogen Urine 0.2 mg/dL (<2.0); WBC Urine 0-5 /hpf; pH Urine 6.5 (5.0-9.0)
[2022-10-22 18:44] LABS: Add Urine Microscopic? YES
--- NOTE | 2022-10-22 19:25 | ED.RECABL ---
HPI - Recheck/Abnormal Lab/Rx General Chief Complaint: Recheck/Abnormal Lab/Rx Stated Complaint: kidney failure, decrease urination Time Seen by Provider: 10/22/22 18:41 Source: patient Limitations: no limitations History of Present Illness HPI narrative: Patient is a 67-year-old female presenting to the emergency department complaining of decreased urine production. Patient states she has tried to go to the bathroom multiple times over the past 2 days and has had scant amount of dribbling and is not able to make any significant amount of urine prompting her to come in and seek evaluation as she has a history of this in the past and was told she may end up needing dialysis but was unable to get onto hemodialysis because she was told she had a bloodstream infection and this was within the past 1 year she is known to nephrology with Dr. Gates. Patient notes that she does not have any abdominal pain. Patient denies hematuria, urinary frequency, urinary urgency, dysuria, constipation, melena, hematochezia, chest pain, shortness of breath, cough, rash, confusion, recent illness, fever. Patient notes she has been consuming adequate amounts of water to stay hydrated but is unable to make any urine. Patient admits to taking all of her medications as prescribed without any recent changes. Patient states that she has a history of heart failure and also has chronic shortness of breath with orthopnea but this is at her baseline without any changes in the past couple weeks. Patient denies numbness, weakness. Related Data Home Medications Medication Instructions Recorded Confirmed acetaminophen 300 mg-codeine 30 mg 1 tablet PO Q6-12H 09/14/19 08/03/21 tablet albuterol sulfate 90 mcg/actuation 1 - 2 puff inhalation Q4-6H PRN 09/14/19 08/03/21 aerosol inhaler Dyspnea bupropion HCl 300 mg 24 hr tablet, 300 mg PO DAILY 09/14/19 08/03/21 extended release carvedilol 12.5 mg tablet 12.5 mg PO BID 09/14/19 08/03/21 cetirizine 10 mg tablet 10 mg PO DAILY 09/14/19 08/03/21 conjugated estrogens 0.3 mg tablet 0.3 mg PO DAILY 09/14/19 08/03/21 (Premarin) gabapentin 100 mg capsule 100 mg PO DAILY 09/14/19 08/03/21 hydrocodone 5 mg-acetaminophen 325 1 tablet PO Q4-6H PRN Breakthrough 09/14/19 08/03/21 mg tablet Pain, Moderate albuterol 90 mcg/actuation aerosol 90 mcg inhalation PRN PRN CHF 02/18/21 08/03/21 inhaler bumetanide 1 mg tablet 1 mg PO BID 02/18/21 08/03/21 doxepin 100 mg capsule 25 mg PO HS 02/18/21 08/03/21 isosorbide mononitrate 30 mg 30 mg PO DAILY 02/18/21 08/03/21 tablet,extended release 24 hr pramipexole 1.5 mg tablet 1.5 mg PO HS 02/18/21 08/03/21 spironolactone 50 mg tablet 50 mg PO BID 02/18/21 08/03/21 tizanidine 4 mg capsule 8 mg PO HS PRN Muscle Pain 02/18/21 08/03/21 hydrochlorothiazide 25 mg tablet 25 mg PO DAILY 02/19/21 08/03/21 zonisamide 100 mg capsule 100 mg PO TID 02/19/21 08/03/21 ascorbic acid (vitamin C) 1,000 mg 1 g PO DAILY 08/03/21 08/03/21 tablet cilostazol 50 mg tablet 50 mg PO BID 08/03/21 08/03/21 hydroxyzine HCl 25 mg tablet 25 mg PO BID PRN Anxiety 08/03/21 08/03/21 multivitamin with minerals-folic 1 tablet PO DAILY 08/03/21 08/03/21 acid 0.4 mg tablet omeprazole 40 mg capsule,delayed 40 mg PO DAILY 08/03/21 08/03/21 release prednisone 10 mg tablet 10 mg PO DAILY 08/03/21 08/03/21 Allergies Allergy/AdvReac Type Severity Reaction Status Date / Time aspirin Allergy Dyspnea / Verified 05/25/21 11:53 SOB Sulfa (Sulfonamide Allergy Hives Verified 05/25/21 11:53 Antibiotics) sumatriptan Allergy Hives Verified 05/25/21 11:53 PMFSH Past Medical History Medical History Allergic rhinitis Chronic kidney disease Chronic lower back pain Depression Frequent headaches GERD (gastroesophageal reflux disease) Heart failure Hypertension Restless leg syndrome Surgical History Surgical History (Reviewed 10/22/22 @ 22:17 by Gianni Zaldivar
--- NOTE | 2022-10-22 19:36 | ECG_ITS ---
Measurements Intervals [place] Rate: 67 P: 29 TN: 153 QRS: -16 QRSD: 85 T: 48 QT: 385 QTc: 408 Interpretive Statements SINUS RHYTHM NORMAL ELECTROCARDIOGRAM COMPARED TO ECG 09/14/2019 14:12:50 NO SIGNIFICANT CHANGES Electronically Signed On 10-23-2022 13:15:51 CDT by Raul Jang M.D.
[2022-10-22 20:08] LABS: Creatine Kinase 20 U/L (30-135)
[2022-10-22 20:20] LABS: NT Pro B Type Natriuretic Pept 292 pg/mL (19.9-100); Troponin I < 0.012 ng/mL (0.000-0.034)
--- NOTE | 2022-10-22 22:26 | PM.IMHP ---
H&P: HPI History of Present Illness Date/Time: 10/22/22 22:26 Chief Complaint: No urine output today Narrative: 67-year-old female with a past medical history of chronic kidney disease stage 3, essential hypertension, diastolic heart failure, and chronic back pain who presented to the ER with decreased urine output for 2 days. The patient reports that on the 6th she had only 3 voids and on the 7th she was unable to produce urine despite trying to drink more fluids. She denies any significant nausea currently but does have problems with intermittent nausea at baseline. She has not been having any vomiting. She denies any changes in her bowel habits or having any diarrhea. She has only been able to dribble urine at home and when she got to the ER if bladder scan demonstrated that she only had 188 mL in her bladder. She reports that she has chronic abdominal pain with palpation of her abdomen due to prior abdominal surgeries that were complicated by infection. She has not noticed any change in her abdomen otherwise. She denies any fevers or chills. She has been taking all of her medications. She does have some shortness of breath and chronic cough. Her shortness of breath is unchanged from her baseline. She continues to smoke. She denies taking any ibuprofen or Aleve. She was last hospitalized at our facility in July of 2021. It was discussed at that time that she may need to be started to be prepared for eventual dialysis. She was not started on dialysis in a port was not placed during her last hospitalization due to bloodstream infection. Evidently since that time patient has not directly followed up with Nephrology. She stated that when she went to make an appointment with Dr. Kuldeep Gates a few months ago she found out he had retired. She has not called office or tried to become established with Dr. Craven. She would prefer not to see the diesel crane operator that go to [place] as she was not happy with the care she received previously. Review of Systems Review of Systems: 12 systems were reviewed with pertinent positives and negatives per HPI. Except as documented in the HPI, all other systems were reviewed and are negative. [facility] Past Medical History Medical History (Updated 10/23/22 @ 08:45 by Ramona Dutta DO) Allergic rhinitis Chronic kidney disease Due to small kidneys Chronic lower back pain COPD mixed type She has never had PFTs but is on inhaled beta agonist and corticosteroid and chronic steroid therapy CVA (cerebral vascular accident) As a complication of control in early 20'without residual deficit Degenerative disc disease Depression Diastolic heart failure Echocardiogram 07/2021: EF 60 65% diastolic dysfunction grade 1 mild tricuspid regurgitation Frequent headaches GERD (gastroesophageal reflux disease) Heart failure Hiatal hernia Hypertension With a history renal artery stent Kidney stones Lumbago due to displacement of intervertebral disc Restless leg syndrome Small bowel obstruction With most recent hospitalization 07/2022 Surgical History Surgical History H/O right inguinal hernia repair History of appendectomy History of hysterectomy History of partial gastrectomy Due to gastric ulcers History of stent insertion of renal artery History of ventral hernia repair X5 complicated by MRSA infection requiring debridement Hx of cholecystectomy Status post cataract extraction of both eyes with insertion of intraocular lens Family History Family History Mother Lung cancer Father Healthy adult Alive and well at age greater than 90 Social History Social History (Updated 10/23/22 @ 05:13 by Ramona Dutta DO) Social History: She has been from her for approximately 20 years but they still live in the same home. She rarely drinks alcohol all. She used
[2022-10-22] MEDS: LACTATED RINGERS 1,000 ML 125 ML IV CONT (23:03)
[2022-10-22] MEDS: traMADol HCL (*CRX) 50 MG TABLET PO (23:14)
--- NOTE | 2022-10-22 23:37 | ADMGEN ---
This patient, Sherrie Giang, was admitted to Medical Room 343-01. Patient/family oriented to hospital policies and general routines including ID bracelet, bed and alarms, visiting hours, pain management, procedures, bathroom and other care routines, personal items, smoking policy, room service/diet, and visiting hours. Information on how to activate the Rapid Response Team has been discussed. Patient/Family are encouraged to report perceived risks to care and to ask questions if they do not understand what they are told or what they should do.
[2022-10-23] MEDS: PIPERACILLIN/TAZ 2.25G/NS 50ML 2.25 GM/50 ML BAG IVPB (05:44)
[2022-10-23 06:08] VITALS: BP 115/63; PULSE 72; RESP 16; TEMP 36.4; O2SAT 95
[2022-10-23 06:20] LABS: Reticulocyte Hemoglobin Conten 22.2 pg (28.2-35.7); Reticulocyte Percent 1.71 % (0.7-4.3); Reticulocytes Absolute 0.07 M/mm3 (0.02-0.1)
[2022-10-23 06:21] LABS: Basophils Absolute Auto 0.1 K/mm3 (0.0-0.1); Basophils Percent Auto 0.7 % (0.2-1.2); Eosinophils Absolute Auto 0.2 K/mm3 (0-0.3); Eosinophils Percent Auto 2.4 % (0-4.4); Hemoglobin 9.4 g/dL (12.0-15.0); Immature Granulocyte Absolute 0.15 K/mm3 (0.00-0.031); Immature Granulocyte Percent A 1.5 % (0-0.5); Lymphocytes Absolute Auto 3.02 K/mm3 (0.9-3.2); Lymphocytes Percent Auto 30.3 % (18.3-44.2); Mean Corpuscular HGB Conc 28.5 g/dl (32-36); Mean Corpuscular Hemoglobin 23.2 pg (26-34); Mean Corpuscular Volume 81.5 fl (80-100); Mean Platelet Volume 10.7 fl (7.4-10.4); Monocytes Absolute Auto 1.3 K/mm3 (0.1-0.6); Monocytes Percent Auto 12.5 % (2.6-8.5); Neutrophils Absolute Auto 5.3 K/mm3 (1.3-6.7); Neutrophils Percent Auto 52.6 % (45.5-73.1); Platelet Count Result 468 k/mm3 (150-375); Red Blood Count 4.05 M/mm3 (4.2-5.4); Red Cell Distribution Width 18.1 % (11.5-14.5)
[2022-10-23 06:32] LABS: Lactate Dehydrogenase 111 U/L (120-246)
[2022-10-23 06:42] LABS: Iron 19 ug/dL (37-170)
[2022-10-23 06:51] LABS: Percent Iron Saturation 5 % (20-50)
[2022-10-23 06:53] LABS: Anion Gap 5 mmol/L (8-16); Blood Urea Nitrogen 29 mg/dL (7-17); Calcium 9.1 mg/dL (8.4-10.2); Carbon Dioxide 27 mmol/L (22-30); Chloride 101 mmol/L (98-107); Estimated CRCL calculation 18 ml/min; Estimated Glomerular Filt Rate 17; Glucose 75 mg/dL (65-110); Magnesium 2.4 mg/dL (1.6-2.3); Phosphorus 3.5 mg/dL (2.5-4.5); Potassium 3.6 mmol/L (3.4-5.0); Sodium 133 mmol/L (137-145)
[2022-10-23 07:14] LABS: Platelet Estimate Increased (Adequate)
[2022-10-23 07:15] LABS: Anisocytosis 2+ (NORMAL); Hypochromasia 1+ (NORMAL); Schistocytes None Seen (NORMAL)
[2022-10-23 07:28] LABS: Ferritin 7.17 ng/mL (11.1-264)
[2022-10-23 07:43] LABS: Folic Acid > 20.0 ng/mL (2.76->20); Vitamin B12 > 1000.0 pg/mL (239-931)
[2022-10-23 07:45] VITALS: PULSE 67; RESP 18; O2SAT 93
[2022-10-23] MEDS: FLUTICASONE/SALMETEROL 115-21 MCG INHALER 1 PUFF 2 PUFF INHALATION ×2 (07:45→19:50)
[2022-10-23] MEDS: traMADol HCL (*CRX) 50 MG TABLET PO ×2 (08:46→16:15)
[2022-10-23] MEDS: diazePAM (*CRX) 2 MG TABLET PO (08:47)
[2022-10-23] MEDS: predniSONE 5 MG TABLET PO (08:47)
[2022-10-23] MEDS: ASCORBIC ACID 500 MG TABLET 1000 MG PO (08:47)
[2022-10-23] MEDS: CHOLECALCIFEROL 1,000 UNITS TABLET 2000 UNITS PO (08:48)
[2022-10-23] MEDS: MAGNESIUM OXIDE 200 MG TABLET PO (08:48)
[2022-10-23] MEDS: CLOPIDOGREL BISULFATE 75 MG TABLET PO (08:48)
[2022-10-23] MEDS: buPROPion HCL XL (24 HR) 150 MG TABCR PO (08:48)
[2022-10-23] MEDS: ATORVASTATIN 40 MG TABLET PO (08:48)
[2022-10-23 08:49] VITALS: PULSE 65
[2022-10-23] MEDS: carvediloL 12.5 MG TABLET PO ×2 (08:49→20:27)
[2022-10-23] MEDS: ISOSORBIDE MONONITRATE 30 MG TAB.ER.24H PO (08:49)
[2022-10-23] MEDS: MULTIVITAMINS THERAPEUTIC TAB (*BKC) 1 TABLET PO (09:00)
[2022-10-23] MEDS: PANTOPRAZOLE 40 MG TABLET PO ×2 (09:00→16:16)
[2022-10-23] MEDS: FERROUS SULFATE 325 MG TABLET DR PO (09:43)
[2022-10-23] MEDS: LACTATED RINGERS 1,000 ML 125 ML IV CONT (09:57)
--- NOTE | 2022-10-23 10:31 | PM.CNNEP ---
Assessment and Plan Assessment and plan (1) KHALIF (acute kidney injury): Assessment and Plan: likely due to a combination of volume depletion from poor oral intake worsened by continued use of outpatient diuretic therapy and possible infection (diverticultitis) improvement in renal function with IVF resuscitation diuretics on hold CT imaging negative for obstruction check urine electrolytes, urine eosinophils, and CPK follow trend of repeat labs and UOP (2) Stage 3b chronic kidney disease: Assessment and Plan: baseline creatinine ~ 1.4 - 1.8mg/dl since 2020 however, cannot discount the possibility of CKD progression secondary to HTN, vascular disease, heart failure, age, and loss of nephron mass from right renal atrophy (3) Diverticulitis: Code(s): K57.92 - Diverticulitis of intestine, part unspecified, without perforation or abscess without bleeding Status: Acute Assessment and Plan: as noted on admission CT imaging on antibiotic therapy continue supportive therapy (4) Hypertension: Qualifiers: Hypertension type: unspecified Qualified Code(s): I10 - Essential (primary) hypertension Code(s): I10 - Essential (primary) hypertension Status: Chronic Assessment and Plan: reasonable control at this time follow trend of hemodymaics I will continue to follow the patient with you while she remains hospitalized and make further recommendations as needed. Thank you for allowing me to participate in the care of this patient. History of Present Illness Reason for Consult Consult date: 10/23/22 Reason for consult: acute renal failure (on chronic kidney disease) Chief Complaint Chief complaint: acute kidney injury History of Present Illness Narrative: The patient is a 67-year-old female with a past medical history as outlined below who presented to [facility] Emergency room for further evaluation of decreased urine output. The patient states that for the last 2-3 days she has noticed a significant decline in her urine output. She reports only 3 voids a couple of days ago and then the day after she did not produce any urine at all despite increased oral fluid intake. She does have problems with chronic nausea at baseline but denies any vomiting. She denies any change in her bowel habits, diarrhea, or constipation. She does have chronic abdominal pain secondary to her multiple abdominal surgeries and presumed scar tissue. Interestingly, despite the fact that she has not been urinating very much, she continued to take her diuretic therapy. She denies any other new medications or [id number] medications with regard to NSAID therapy, or herbal supplements. Given the persistence of this issue, she presented to the ER for further assessment. Workup and evaluation emergency room demonstrated the patient be hemodynamically stable and she did not appear to be any acute distress. Routine blood tests demonstrated a significant decline in her renal function in comparison to baseline. Subsequent CT scan of the abdomen pelvis did not show any acute pathology with regard to her kidneys but did show evidence of diverticulitis. Given her constellation of symptoms in conjunction with her laboratory and imaging findings, the patient was started on IV fluids and empiric antibiotics for her diverticulitis after appropriate cultures were obtained and subsequently admitted to the hospital for further evaluation and therapy. Renal consultation was requested due to her acute kidney injury on top of her baseline kidney disease. The patient is somewhat familiar to me as I have taking care of her before with regard to her renal dysfunction. She has known baseline kidney disease with a creatinine that has fluctuated anywhere from 1.4 - 1.8 mg/dL since 2020 although she has not had any recent labs to compare to since July of 2021 which when she was last hospitalized here a
--- NOTE | 2022-10-23 10:59 | PM.IMPN ---
Progress Note: A&P Assessment and Plan (1) Acute on chronic renal failure: Qualifiers: Acute renal failure type: unspecified Chronic kidney disease stage: stage 3 (moderate) Chronic kidney disease stage 3 subtype: stage 3b (GFR 30-44) Qualified Code(s): N17.9 - Acute kidney failure, unspecified; N18.32 - Chronic kidney disease, stage 3b Code(s): N17.9 - Acute kidney failure, unspecified; N18.9 - Chronic kidney disease, unspecified Status: Acute Assessment and Plan: Creatinine improving. Continue IV fluids. Nephrology consulted. (2) Acute anemia: Code(s): D64.9 - Anemia, unspecified Status: Acute Assessment and Plan: Iron studies suggest iron deficiency anemia. Will start on daily iron supplement (3) Diverticulitis: Code(s): K57.92 - Diverticulitis of intestine, part unspecified, without perforation or abscess without bleeding Status: Acute Assessment and Plan: CT scan did demonstrate mild diverticulitis. Patient is a 88. Discontinue Zosyn and put on p.o. Cipro and Flagyl (4) Hypertension: Qualifiers: Hypertension type: unspecified Qualified Code(s): I10 - Essential (primary) hypertension Code(s): I10 - Essential (primary) hypertension Status: Acute Assessment and Plan: Stable. Continue home medications (5) Lumbago due to displacement of intervertebral disc: Code(s): M51.26 - Other intervertebral disc displacement, lumbar region Status: Acute Assessment and Plan: Continue home meds Subjective Date/time seen: 10/23/22 10:59 Interval history: No issues at this time Review of Systems Review of Systems: 12 systems were reviewed with pertinent positives and negatives per HPI. Except as documented in the HPI, all other systems were reviewed and are negative. Exam Narrative: Weight 73.4 kg BMI 27.8 Const: Other: Well-developed well-nourished, no acute distress HENMT: Other: Mucous membranes are tacky, no oral pharyngeal erythema, upper and lower dentures in place Eyes: Other: Pupils are equal and reactive, positive conjunctival pallor, no scleral icterus Neck: Other: No lymphadenopathy, no thyromegaly Resp: Other: Breath sounds equal bilaterally Cardio: Other: Regular rate, regular rhythm, 2+ bilateral radial pedal pulses GI: Other: Soft, tender in bilateral lower quadrants, hypoactive bowel sounds, no organomegaly, multiple abdominal scars noted, nondistended Back/Spine/Pelvis: Other: Min line tenderness at L4-L5 junction and at the L3 and L4 midline position, also tenderness over SI joints bilaterally Skin: Other: Mild pallor, non jaundice, poor skin turgor Neuro: Other: Alert oriented, speech is clear, no facial asymmetry, no localizing neurologic deficits noted during the course of conversation Extrem: Other: No cyanosis, no edema Psych: Other: Appropriate mood and affect, pleasant and cooperative, judgment insight intact Objective Data Vital Signs Vital Signs: Vital Signs - 24 hr 10/22/22 17:25 10/22/22 18:30 10/22/22 18:39 Temperature 97.7 F 98.2 F Pulse Rate 75 70 Respiratory Rate 22 H 19 Blood Pressure 141/55 H 150/74 H Pulse Oximetry 99 99 97 Oxygen Delivery Room Air Fraction of Inspired Oxygen 10/22/22 18:49 10/22/22 19:03 10/22/22 19:15 Temperature Pulse Rate Respiratory Rate Blood Pressure Pulse Oximetry 98 98 97 Oxygen Delivery Fraction of Inspired Oxygen 10/22/22 19:30 10/22/22 19:31 10/22/22 19:45 Temperature Pulse Rate Respiratory Rate Blood Pressure 129/70 Pulse Oximetry 94 95 95 Oxygen Delivery Fraction of Inspired Oxygen 10/22/22 20:01 10/22/22 20:10 10/22/22 20:15 Temperature Pulse Rate Respiratory Rate Blood Pressure 148/61 H Pulse Oximetry 65 L 98 Oxygen Delivery Fract
[2022-10-23 11:35] VITALS: BMI 27.8
[2022-10-23] MEDS: IRON SUCROSE COMPLEX 200 MG in SODIUM CHLORIDE 0.9% IV 50 ML 120 MG IVPB (11:36)
[2022-10-23 14:00] VITALS: BP 113/71; PULSE 67; RESP 18; TEMP 36.8; O2SAT 97
[2022-10-23] MEDS: metroNIDAZOLE 250 MG TABLET 500 MG PO ×2 (14:19→20:24)
[2022-10-23 15:30] LABS: IFOB Positive Control Positive; Immunochemical Fecal Occult Bl Positive (N)
[2022-10-23 17:48] LABS: Urea Random Urine 245 MG/DL
[2022-10-23 17:52] LABS: Sodium Urine Random < 5 meq/L
[2022-10-23 18:20] LABS: Eosinophil Urine None Seen % (None Seen); Urine Eos QC 2nd Tech Confirmed
[2022-10-23] MEDS: CEPHALEXIN 500 MG CAPSULE PO (20:24)
[2022-10-23] MEDS: LACTATED RINGERS 1,000 ML 75 ML IV CONT (20:24)
[2022-10-23] MEDS: DOXEPIN HCL 25 MG CAPSULE PO (20:25)
[2022-10-23] MEDS: TIZANIDINE HCL 2 MG TABLET PO (20:27)
[2022-10-23] MEDS: ZOLPIDEM TARTRATE (*CRX) 5 MG TABLET PO (20:27)
[2022-10-23 20:43] VITALS: BP 135/53; PULSE 65; RESP 16; TEMP 36.6; O2SAT 97
[2022-10-24] MEDS: metroNIDAZOLE 250 MG TABLET 500 MG PO (05:07)
[2022-10-24 05:13] VITALS: BP 114/58; PULSE 63; RESP 16; TEMP 36.7; O2SAT 94
[2022-10-24 05:48] LABS: Basophils Percent Auto 0.4 % (0.2-1.2); Eosinophils Absolute Auto 0.1 K/mm3 (0-0.3); Eosinophils Percent Auto 1.1 % (0-4.4); Hematocrit 28.9 % (37.0-47.0); Hemoglobin 8.4 g/dL (12.0-15.0); Immature Granulocyte Absolute 0.06 K/mm3 (0.00-0.031); Immature Granulocyte Percent A 0.6 % (0-0.5); Lymphocytes Absolute Auto 1.93 K/mm3 (0.9-3.2); Mean Corpuscular HGB Conc 29.1 g/dl (32-36); Mean Corpuscular Hemoglobin 23.5 pg (26-34); Mean Platelet Volume 10.5 fl (7.4-10.4); Monocytes Absolute Auto 1.1 K/mm3 (0.1-0.6); Monocytes Percent Auto 10.4 % (2.6-8.5); Neutrophils Percent Auto 68.5 % (45.5-73.1); Platelet Count Result 433 k/mm3 (150-375); Red Blood Count 3.57 M/mm3 (4.2-5.4); White Blood Count 10.1 K/mm3 (4.5-10.0)
[2022-10-24 06:04] LABS: Alanine Aminotransferase 12 U/L (6-35); Alkaline Phosphatase 60 U/L (38-126); Anion Gap 4 mmol/L (8-16); Aspartate Amino Transferase 16 U/L (14-36); Bilirubin,Total 0.2 mg/dL (0.2-1.3); Blood Urea Nitrogen 22 mg/dL (7-17); Calcium 8.6 mg/dL (8.4-10.2); Carbon Dioxide 26 mmol/L (22-30); Chloride 104 mmol/L (98-107); Creatine Kinase < 20 U/L (30-135); Estimated CRCL calculation 24 ml/min; Estimated Glomerular Filt Rate 25; Glucose 83 mg/dL (65-110); Potassium 3.4 mmol/L (3.4-5.0); Sodium 134 mmol/L (137-145)
[2022-10-24 06:26] LABS: Anisocytosis 1+ (NORMAL); Hypochromasia 1+ (NORMAL); Platelet Estimate Increased (Adequate); Schistocytes None Seen (NORMAL)
[2022-10-24 08:49] VITALS: PULSE 72
[2022-10-24] MEDS: MULTIVITAMINS THERAPEUTIC TAB (*BKC) 1 TABLET PO (08:49)
[2022-10-24] MEDS: carvediloL 12.5 MG TABLET PO (08:49)
[2022-10-24] MEDS: FERROUS SULFATE 325 MG TABLET DR PO (08:49)
[2022-10-24] MEDS: CLOPIDOGREL BISULFATE 75 MG TABLET PO (08:49)
[2022-10-24] MEDS: ISOSORBIDE MONONITRATE 30 MG TAB.ER.24H PO (08:49)
[2022-10-24] MEDS: CHOLECALCIFEROL 1,000 UNITS TABLET 2000 UNITS PO (08:49)
[2022-10-24] MEDS: CEPHALEXIN 500 MG CAPSULE PO (08:49)
[2022-10-24] MEDS: ASCORBIC ACID 500 MG TABLET 1000 MG PO (08:49)
[2022-10-24] MEDS: ATORVASTATIN 40 MG TABLET PO (08:49)
[2022-10-24] MEDS: PANTOPRAZOLE 40 MG TABLET PO (08:49)
[2022-10-24] MEDS: predniSONE 5 MG TABLET PO (08:49)
[2022-10-24] MEDS: diazePAM (*CRX) 2 MG TABLET PO (08:50)
[2022-10-24] MEDS: buPROPion HCL XL (24 HR) 150 MG TABCR PO (08:50)
[2022-10-24] MEDS: MAGNESIUM OXIDE 200 MG TABLET PO (08:50)
[2022-10-24] MEDS: traMADol HCL (*CRX) 50 MG TABLET PO (08:55)
[2022-10-24] MEDS: FLUTICASONE/SALMETEROL 115-21 MCG INHALER 1 PUFF 2 PUFF INHALATION (09:05)
--- NOTE | 2022-10-24 10:50 | PM.DS ---
DS: Admitting Diagnosis Discharge Date 10/24/2022 Admitting Diagnosis Acute kidney injury Abdominal pain DS: Discharge Diagnosis Discharge Diagnosis (1) Diverticulitis: Code(s): K57.92 - Diverticulitis of intestine, part unspecified, without perforation or abscess without bleeding Status: Acute (2) Acute anemia: Code(s): D64.9 - Anemia, unspecified Status: Acute (3) Acute on chronic renal failure: Qualifiers: Acute renal failure type: unspecified Chronic kidney disease stage: stage 3 (moderate) Chronic kidney disease stage 3 subtype: stage 3b (GFR 30-44) Qualified Code(s): N17.9 - Acute kidney failure, unspecified; N18.32 - Chronic kidney disease, stage 3b Code(s): N17.9 - Acute kidney failure, unspecified; N18.9 - Chronic kidney disease, unspecified Status: Acute (4) Hypertension: Qualifiers: Hypertension type: unspecified Qualified Code(s): I10 - Essential (primary) hypertension Code(s): I10 - Essential (primary) hypertension Status: Chronic DS: Summary Hospital Course Hospital Course: Patient admitted with the acute kidney injury on chronic kidney disease. Nephrology was consulted. Patient was started on IV fluids. Her renal functions have improved her creatinine is down to 2. her previous baseline is 1.8. This may be her new baseline. Patient is asymptomatic. She also was found to have mild diverticulitis and was started on oral antibiotics which will continue for a few days upon discharge. Patient was also found to have iron-deficiency anemia and has been started on supplement. She is stable and is being discharged home Time Spent with Patient Time attestation: Total time spent providing and/or coordinating discharge services: DS: Data Data Completed and Pending Labs on day of discharge: Labs from last 24 hours 10/24/22 10/23/22 10/23/22 05:25 17:22 17:15 WBC 10.1 H RBC 3.57 L Hgb 8.4 L Hct 28.9 L MCV 81.0 MCH 23.5 L MCHC 29.1 L RDW 18.0 H Plt Count 433 H MPV 10.5 H Immature Gran % (Auto) 0.6 H Neut % (Auto) 68.5 Lymph % (Auto) 19.0 Chambers % (Auto) 10.4 H Eos % (Auto) 1.1 Baso % (Auto) 0.4 Lymph # (Auto) 1.93 Chambers # (Auto) 1.1 H Eos # (Auto) 0.1 Baso # (Auto) 0.0 Abs Immat Gran (auto) 0.06 H Absolute Neuts (auto) 7.0 H Absolute Nucleated RBC 0.0 Nucleated RBC % 0.0 Platelet Estimate Increased Hypochromasia 1+ Anisocytosis 1+ Schistocytes None seen Sodium 134 L Potassium 3.4 Chloride 104 Carbon Dioxide 26 Anion Gap 4 L BUN 22 H Creatinine 2.00 H Estim Creat Clear Calc 24 Estimated GFR 25 L Glucose 83 Calcium 8.6 Total Bilirubin 0.2 AST 16 ALT 12 Alkaline Phosphatase 60 Total Creatine Kinase < 20 L Total Protein 6.0 L Albumin 3.0 L Urine Eosinophils None seen Ur Random Sodium < 5 Ur Random Urea 245 Urine Creatinine 51.0 Stl Occult Blood (IFOB) 10/23/22 15:19 WBC RBC Hgb Hct MCV MCH MCHC RDW Plt Count MPV Immature Gran % (Auto) Neut % (Auto) Lymph % (Auto) Chambers % (Auto) Eos % (Auto) Baso % (Auto) Lymph # (Auto) Chambers # (Auto) Eos # (Auto) Baso # (Auto) Abs Immat Gran (auto) Absolute Neuts (auto) Absolute Nucleated RBC Nucleated RBC % Platelet Estimate Hypochromasia Anisocytosis Schistocytes Sodium Potassium Chloride Carbon Dioxide Anion Gap BUN Creatinine Estim Creat Clear Calc Estimated GFR Glucose Calcium Total Bilirubin AST ALT Alkaline Phosphatase Total Creatine Kinase Total Protein Albumin Urine Eosinophils Ur Random Sodium Ur Random Urea Urine Creatinine Stl Occult Blood (IFOB) Positive H Discharge Plan Discharge Consulting providers: Raul Navarrete; Kaycee Craven Discharging Clinician: Thor Wisdom Anticipated Discharge Date/Time:
== END 2022-10-24 12:10 | disposition home or self-care (01) ==
LOC: ANHED 21:47 → ANH3MED 22:20
PROVIDERS: Emergency Medicine; Internal Medicine Nephrology; Admitting Provider Internal Medicine; Emergency Provider Student in an Organized Health Care Education/Training Program; Visit Provider Hospitalist
DX: N17.9 Acute kidney failure, unspecified (principal); R34 Anuria and oliguria; D64.9 Anemia, unspecified; I13.0 Hypertensive heart and chronic kidney disease with heart failure and stage 1 through stage 4 chronic kidney disease, or unspecified chronic kidney disease; I50.30 Unspecified diastolic (congestive) heart failure; N18.32 Chronic kidney disease, stage 3b; K57.92 Diverticulitis of intestine, part unspecified, without perforation or abscess without bleeding; M51.26 Other intervertebral disc displacement, lumbar region; J44.9 Chronic obstructive pulmonary disease, unspecified; K21.9 Gastro-esophageal reflux disease without esophagitis; G25.81 Restless legs syndrome; F32.A Depression, unspecified; F17.210 Nicotine dependence, cigarettes, uncomplicated; Z79.51 Long term (current) use of inhaled steroids; Z79.891 Long term (current) use of opiate analgesic; Z90.3 Acquired absence of stomach [part of]; Z79.02 Long term (current) use of antithrombotics/antiplatelets
CPT/HCPCS: 36415; 71046; 74176; 80048; 80053; 81001; 82274; 82550; 82570; 82607; 82728; 82746; 83540; 83550; 83615; 83735; 83880; 84100; 84300; 84443; 84484; 84540; 85025; 85046; 85610; 85730; 85999; 93005; 94640; 96361; 96365; 96375; 99285; A9270; G0378; J1756; J2543; J7120; J7512

== ENCOUNTER 2023-05-31 13:45 | Outpatient (RCR) | payer MEDICARE, MEDICAID, SELFPAY ==
--- NOTE | 2023-05-31 14:55 | OPREHPOC ---
Outpatient Therapy Plan of Care This is a Multidisciplinary Plan of Care that may contain components documented by all disciplines (PT, OT, and ST.) PT Problem 1 PT Problem #1 Knowledge Deficit PT Goal 1 Goal patient to demonstrate independence with HEP Target Visit 6 PT Problem 2 PT Problem #2 Pain PT Goal 1 Goal 1. patient to report highest pain at 4/10 2. patient to report no sleep disturbance due to R shoulder or neck pain Target Visit 12 PT Problem 3 PT Problem #3 Impaired Range of Motion PT Goal 1 Goal 1. patient to demonstrate 90 deg of R shoulder flexion to return to reaching to boot maker Target Visit 6 PT Goal 2 Goal 1. patient to demonstrate 160 deg of R shoulder flexion to return to reaching into cabinet at PLOF 2. patient to demonstrate ability to reach to back pocket with R UE for dressing tasks 3. patient to demonstrate 60 deg of B cervical rotation to return to driving at PLOF Target Visit 12 PT Problem 4 PT Problem #4 Impaired Strength PT Goal 1 Goal patient to demonstrate 3+/5 strength of the R shoulder Target Visit 6 PT Goal 2 Goal patient to demonstrate 4+/5 strength of the R shoulder to return to house hold tasks at PLOF Target Visit 12 PT Problem 5 PT Problem #5 Impaired Functional Mobil PT Goal 1 Goal 1. patient to demonstrate <50% impairment on QuickDASH 2. patient to report ability to drive with no increase in pain Target Visit 12
--- NOTE | 2023-05-31 14:55 | PTOPEVAL1 ---
Assessment and note entered by Shelli Beverly DPT Evaluation Information Assessment Status Evaluation Diagnosis R shoulder pain, neck pain Onset 04/18/23 Subjective Information patient reports that on Apr 18 she fell down her stairs 2x. she reports she has since again fallen down the stairs. she reports she has had R shoulder and neck pain since. she reports pain radiates down her R UE into the whole R hand. she reports she gets burning into the R upper arm. she reports x-rays showed some arthritis and impingement at the R shoulder. she has not had neck x-rays. she reports difficulty with sleeping, dressing, driving, hygiene tasks and house hold chores. prior to falls since did not have any shoulder pain. patient reports she is retired. RTMD 06/17/23. Reported Pain Level Pain Score 9,0: Self Report Assessment PT Clinical Summary Mrs. Giang is a 67 year old female who presents to PT with R shoulder and neck pain. She demonstrates decreased R shoulder and neck ROM, decreased R shoulder strength and tenderness located at the R 1st fib and upper trap limiting her ability to dress, sleep, drive, perform house hold chores and complete hygiene tasks. She would benefit from skilled PT to address impairments and return to PLOF. Plan of Care Interventions Electrical Stimulation,Hot Pack/Cold Pack,Manual Therapy,Mechanical Traction,Neuro Re-education, Patient/Caregiver Educati,Therapeutic Activities, Therapeutic Exercise PT Services Indicated Yes Treatment Frequency and 3x weekly for 12 visits Duration These treatments will address the objective and functional deficits as defined above. The patient will be advanced safely and appropriately in order for the patient to progress towards his/her prior level of function. Additional exercises will be introduced and as well as a comprehensive home exercise program upon discharge, if needed, ?to ensure carryover of functional gains achieved in the clinic. This treatment plan has been reviewed and agreement upon by the patient.
--- NOTE | 2023-06-07 13:10 | PCPTNOTE ---
cancel no reason given
[2023-06-26 13:00] VITALS: BP_SYST 91
--- NOTE | 2023-07-05 11:39 | PCPTNOTE ---
patient called to cancel
--- NOTE | 2023-07-08 11:58 | PCPTNOTE ---
Patient cancelled session due to illness. Patient reports she thinks she has pneumonia.
--- NOTE | 2023-07-11 14:56 | PCPTNOTE ---
No call, no show. Voicemail left for patient to reschedule.
--- NOTE | 2023-07-15 14:51 | PCPTNOTE ---
Patient cancelled due to illness.
== END 2023-07-04 20:00 | disposition home or self-care (01) ==
LOC: CHSPT 13:45
DX: M75.41 Impingement syndrome of right shoulder (principal); M54.2 Cervicalgia
CPT/HCPCS: 97014; 97110; 97140; 97161; 97530; G0283